=== PATIENT | male | born 1950 | race Caucasian/White ===

== ENCOUNTER 2019-07-30 09:43 | Outpatient (CLI) | payer MEDICARE, OTHER ==
[2019-07-30 10:01] LABS: BASOPHILS # (AUTO) 0.1 10^3/uL (0.0-0.1); BASOPHILS % (AUTO) 0.9 %; EOSINOPHILS # (AUTO) 0.4 10^3/uL (0.0-0.7); EOSINOPHILS % (AUTO) 4.4 %; HGB - HEMOGLOBIN 13.2 g/dL (14.0-18.0); LYMPHOCYTES # (AUTO) 1.5 10^3/uL (1.5-3.5); LYMPHOCYTES % (AUTO) 18.5 %; MEAN CORPUSCULAR HEMOGLOBIN 33.4 pg (27.0-31.0); MEAN CORPUSCULAR HGB CONC 33.7 g/dL (32.0-36.0); MEAN CORPUSCULAR VOLUME 99.2 fL (80.0-94.0); MEAN PLATELET VOLUME 9.1 fL (7.4-11.4); MONOCYTES # (AUTO) 0.8 10^3/uL (0.0-1.0); MONOCYTES % (AUTO) 10.5 %; NEUTROPHILS # (AUTO) 5.1 10^3/uL (1.5-6.6); NEUTROPHILS % (AUTO) 64.8 %; PLT - PLATELET COUNT 276 10^3/uL (130-450); RED BLOOD COUNT 3.95 10^6/uL (4.70-6.10); RED CELL DISTRIBUTION WIDTH 12.4 % (12.0-15.0); WHITE BLOOD COUNT 7.9 x10^3/uL (4.8-10.8)
[2019-07-30 10:14] LABS: ALBUMIN 4.2 g/dL (3.2-5.5); ALBUMIN/GLOBULIN RATIO 1.4 (1.0-2.2); BILIRUBIN,TOTAL 0.3 mg/dL (0.2-1.0); CREATININE 0.7 mg/dL (0.6-1.2); TOTAL PROTEIN 7.2 g/dL (6.7-8.2)
== END 2019-07-30 09:44 | disposition home or self-care (01) ==
LOC: LAB 09:43
PROVIDERS: ATTEND Internal Medicine
DX: R42 Dizziness and giddiness (principal); R53.83 Other fatigue
CPT/HCPCS: 36415; 80053; 84443; 85025

== ENCOUNTER 2019-09-08 12:03 | Outpatient (CLI) | payer MEDICARE, OTHER ==
[2019-09-08 12:43] LABS: ALBUMIN 4.6 g/dL (3.2-5.5); ALBUMIN/GLOBULIN RATIO 1.6 (1.0-2.2); ALKALINE PHOSPHATASE 65 IU/L (42-121); ALT ALANINE AMINOTRANSFERASE 30 IU/L (10-60); AST ASPARTATE AMINOTRANSFERASE 34 IU/L (10-42); BILIRUBIN,TOTAL 0.7 mg/dL (0.2-1.0); BUN - BLOOD UREA NITROGEN 7 mg/dL (6-20); CALCIUM 8.9 mg/dL (8.5-10.3); CARBON DIOXIDE - CO2 26 mmol/L (21-32); CHLORIDE 93 mmol/L (101-111); CHOL/HDL RATIO 2.1 (<5.0); CHOLESTEROL 121 mg/dL; CREATININE 0.8 mg/dL (0.6-1.2); GFR - MDRD 97 (>89); GLUCOSE 109 mg/dL (70-100); HDL CHOLESTEROL 59 mg/dL; LDL CHOLESTEROL,CALCULATED 45 mg/dL; LDL/HDL RATIO 0.8 (<3.6); SODIUM 132 mmol/L (135-145); TOTAL PROTEIN 7.5 g/dL (6.7-8.2); VLDL CHOLESTEROL 17 mg/dL
[2019-09-08 12:44] LABS: HB2 TOTAL 13.1 g/dL; HEMOGLOBIN A1C 0.59 g/dL; HEMOGLOBIN A1C % 6.3 % (4.6-6.2)
[2019-09-08 13:51] LABS: THYROID STIMULATING HORMONE 0.72 uIU/mL (0.34-5.60)
--- NOTE | 2019-09-08 21:52 | XRAY Report ---
Reason: COUGH,SMOKING CESSATION ED,LAB DRAW Procedure Date: 09/08/2019 Accession Number: [id number] / [id number] Procedure: XR - Chest 2 View X-Ray CPT Code: 48464 Final Report FULL RESULT: EXAM: CHEST RADIOGRAPHY EXAM DATE: 09/08/2019 12:35 PM. CLINICAL HISTORY: Cough, smoking cessation education, lab draw. COMPARISON: None. TECHNIQUE: 2 views. FINDINGS: Lungs/Pleura: Large volumes and coarse interstitial markings. No focal pneumonia or overt edema. Biapical pleural thickening. No pneumothorax or effusion. Mediastinum: Within exam limitations, cardiomediastinal contour is normal. Other: None. IMPRESSION: COPD without acute process seen in the chest. RADIA
[2019-09-12 19:03] LABS: METHYLMALONIC ACID 170 nmol/L (87-318)
== END 2019-09-08 12:04 | disposition home or self-care (01) ==
LOC: LAB 12:03 → DI 12:04
PROVIDERS: ATTEND Family Medicine
DX: J44.9 Chronic obstructive pulmonary disease, unspecified (principal); E78.5 Hyperlipidemia, unspecified; F17.200 Nicotine dependence, unspecified, uncomplicated; I10 Essential (primary) hypertension; K21.9 Gastro-esophageal reflux disease without esophagitis; M21.371 Foot drop, right foot; E53.8 Deficiency of other specified B group vitamins; Z87.898 Personal history of other specified conditions
CPT/HCPCS: 36415; 71046; 80053; 80061; 82607; 83036; 83721; 83921; 84425; 84443

== ENCOUNTER 2021-04-18 13:01 | Emergency (ER) | payer MEDICARE, OTHER ==
--- NOTE | 2021-04-18 16:09 | ED Physician Documentation ---
PD HPI UPPER EXT INJURY - Stated complaint Stated Complaint: RT HAND LAC - Chief complaint Chief Complaint: Laceration - History obtained from History obtained from: Patient - History of Present Illness Location: Right, Hand Type of injury: Other (using a planer and took off skin on hi sR thenar eminence) Where injury occurred: Home Timing - onset: Today Timing - duration: Hours Timing - details: Abrupt onset Associated symptoms: No: Weakness, Numbness, Tingling Contributing factors: No: Anticoagulated Recently seen: Not recently seen - Additonal information Additional information: This is a 70-year-old man who was using his planer at home when he ran it across the thenar eminence of his right thumb. He is ambidextrous he does most of his things with his right hand but also uses the left hand for eating and writing. He did not even look at the wound he just held pressure on it on the way here. Last tetanus vaccine was less than 10 years ago. He does not take any blood thinners. He says his fingers were going numb as he was holding a lot of pressure but that is gotten him much improved. He is not diabetic. He is retired. Review of Systems Constitutional: denies: Fever Skin: reports: Other (skin avulsion) Musculoskeletal: reports: Extremity pain Neurologic: denies: Generalized weakness, Focal weakness, Numbness PD PAST MEDICAL HISTORY - Present Medications Home Medications: Ambulatory Orders Medication Instructions Recorded Confirmed cephALEXin [Keflex] 250 mg PO Q6H #12 cap 04/18/21 - Allergies Allergies/Adverse Reactions: Allergies Allergy/AdvReac Type Severity Reaction Status Date / Time No Known Drug Allergies Allergy Verified 04/18/21 13:34 PD ED PE NORMAL - Vitals Vital signs reviewed: Yes - General General: Alert and oriented X 3, No acute distress, Well developed/nourished - HEENT HEENT: Atraumatic - Extremities Extremities: Other (Thenar eminence of R palm with skin avulsion measuring a pprox 1.25x2cm. Muscle tissue and connective tissue evident in base of wound. Sensation intact in fingers and thumb opposition, flexion and adduction intact.) - Neuro Neuro: Alert and oriented X 3, No motor deficit, No sensory deficit, Normal speech - Psych Psych: Normal mood Results - Vitals Vitals: Vital Signs - 24 hr 04/18/21 13:25 Temperature 36.1 C L Heart Rate 88 Respiratory 16 Rate Blood Pressure 139/74 H O2 Saturation 99 Oxygen O2 Source Room air PD MEDICAL DECISION MAKING - ED course ED course: Patient given hydrocodone for his pain. Wound will be cleansed and dressed with antibiotic ointment and Vaseline gauze per nursing. Skin is missing and the wound dimensions are enough that hopefully it will be able to heal by secondary intention without needing a skin graft. This was discussed with the patient. Of asked him to keep our bandage on keep it clean and dry and follow-up with his primary care provider in 2 days for a recheck. Given the exposure of the connective tissues and muscle we elected to put him on 3 days of Keflex 500 mg twice daily.He states understanding.Ibuprofen or Tylenol at home as needed for pain. Departure - Departure Disposition: 01 Home, Self Care Clinical Impression: Skin avulsion Condition: Good Instructions: ED Wound Care Follow-Up: Emiliano Schafer MD [Primary Care Provider] - Prescriptions: cephALEXin [Keflex] 250 mg PO Q6H #12 cap Comments: Leave our bandage on, keep it clean and dry until follow-up with your primary care provider. Take the Keflex for 3 days. Follow-up with your primary care provider in 2 to 3 days for a recheck of the wound.
[2021-04-18] MEDS ORDERED: HYDROcod/ACETAM 5/325 MG TABLET PO STA (16:16)
[2021-04-18] MEDS ORDERED: BACITRACIN ZINC OINT 1 PACKET TOP STA (16:16)
[2021-04-18 16:37] VITALS: BP 158/80
== END 2021-04-18 16:37 | disposition home or self-care (01) ==
LOC: ED 13:01
DX: S61.001A Unspecified open wound of right thumb without damage to nail, initial encounter (principal); W26.2XXA Contact with edge of stiff paper, initial encounter; Y92.009 Unspecified place in unspecified non-institutional (private) residence as the place of occurrence of the external cause
CPT/HCPCS: 99282; 99283; A9270

== ENCOUNTER 2021-07-27 13:41 | Outpatient (CLI) | payer MEDICARE ==
--- NOTE | 2021-07-27 15:59 | XRAY Report ---
PROCEDURE: Shoulder 3 View RT INDICATIONS: FROZEN RIGHT SHOULDER TECHNIQUE: 4 views of the shoulder were acquired. COMPARISON: None. FINDINGS: Bones: No fractures or dislocations. No suspicious bony lesions. Visualized ribs appear intact. Mi ld glenohumeral joint osteoarthritis. Soft tissues: No suspicious soft tissue calcifications. IMPRESSION: Mild glenohumeral joint osteoarthritis. Reviewed by: Shayy Crump MD, PhD on 07/27/2021 3:57 PM PST Approved by: Shayy Crump MD, PhD on 07/27/2021 3:57 PM PST Station ID: [id number]
== END 2021-07-27 13:42 | disposition home or self-care (01) ==
LOC: DI.N 13:41
PROVIDERS: ATTEND Family Medicine
DX: M75.01 Adhesive capsulitis of right shoulder (principal); M19.011 Primary osteoarthritis, right shoulder

== ENCOUNTER 2022-06-05 13:53 | Outpatient (CLI) | payer MEDICARE, OTHER ==
[2022-06-05 17:53] LABS: ABSOLUTE RETICS # AUTO 0.061 10^6/uL (0.020-0.110); BASOPHILS % (AUTO) 0.6 %; EOSINOPHILS # (AUTO) 0.2 10^3/uL (0.0-0.7); EOSINOPHILS % (AUTO) 3.2 %; HCT - HEMATOCRIT 39.4 % (42.0-52.0); HGB - HEMOGLOBIN 13.1 g/dL (14.0-18.0); LYMPHOCYTES % (AUTO) 14.9 %; MEAN CORPUSCULAR HEMOGLOBIN 29.4 pg (27.0-31.0); MEAN CORPUSCULAR HGB CONC 33.2 g/dL (32.0-36.0); MEAN CORPUSCULAR VOLUME 88.3 fL (80.0-94.0); MEAN PLATELET VOLUME 9.1 fL (7.4-11.4); MONOCYTES # (AUTO) 0.6 10^3/uL (0.0-1.0); MONOCYTES % (AUTO) 8.6 %; NEUTROPHILS # (AUTO) 4.7 10^3/uL (1.5-6.6); NEUTROPHILS % (AUTO) 72.5 %; PLT - PLATELET COUNT 260 10^3/uL (130-450); RED BLOOD COUNT 4.46 10^6/uL (4.70-6.10); RED CELL DISTRIBUTION WIDTH 18.1 % (12.0-15.0); RETICULOCYTE COUNT % (AUTO) 1.37 % (0.5-2.3); WHITE BLOOD COUNT 6.5 x10^3/uL (4.8-10.8)
[2022-06-05 18:30] LABS: % IRON SATURATION 13 % (20-50); IRON 56 ug/dL (45-182); TOTAL IRON BINDING CAPACITY 427 ug/dL (250-450); TRANSFERRIN 305 mg/dL (180-329)
[2022-06-05 18:40] LABS: FERRITIN 16.9 ng/mL (23.9-336.2)
[2022-06-05 18:45] LABS: FOLATE 11.33 ng/mL (5.90 - >24.8)
== END 2022-06-05 13:54 | disposition home or self-care (01) ==
LOC: LAB.N 13:53
PROVIDERS: ATTEND Family Medicine
DX: D64.9 Anemia, unspecified (principal)
CPT/HCPCS: 36415; 82607; 82728; 82746; 83540; 84466; 85025; 85045

== ENCOUNTER 2022-09-07 08:51 | Outpatient (CLI) | payer OTHER ==
--- NOTE | 2022-09-07 12:33 | CT Report ---
PROCEDURE: Low Dose Lung Cancer Screen INDICATIONS: History of smoking. TECHNIQUE: Noncontrast low-dose axial images were acquired from the pulmonary apices to the posterior costophren ic angles. Multiplanar MIP reformats were then reconstructed. For radiation dose reduction, the follo wing was used: automated exposure control, adjustment of mA and/or kV according to patient size. COMPARISON: Chest radiographs 09/08/2019. FINDINGS: Image quality: Adequate. Images are denoted as (series #/image #). Lungs and pleura: Mild emphysema. Chronic appearing volume loss/atelectasis right lower lobe. Scatte red areas of bronchiectasis and peripheral airways mucous plugging present. Nodules include: -Left upper lobe: 5 mm groundglass nodule (). No pleural effusion. Mediastinum: No pericardial effusion. Thoracic aorta and central pulmonary arteries are normal in s ize. Esophagus is normal in caliber. Bones and chest wall: Multilevel degenerative change of the visualized spine. No axillary or suprac lavicular adenopathy by size criteria. Abdomen: Small hiatal hernia. IMPRESSION: 1. Lung-RADS Category 2 - benign. Recommendation: Continue annual screening with low-dose noncontrast chest CT in 12 months. 2. Chronic findings as above. Reviewed by: Scott Foley MD on 09/07/2022 12:31 PM [facility] Approved by: Scott Foley MD on 09/07/2022 12:31 PM PST Station ID: [id number]
== END 2022-09-07 08:52 | disposition home or self-care (01) ==
LOC: DI 08:51
PROVIDERS: ATTEND Registered Nurse
DX: Z12.2 Encounter for screening for malignant neoplasm of respiratory organs (principal); Z87.891 Personal history of nicotine dependence

== ENCOUNTER 2023-02-15 12:49 | Emergency (ER) | payer MEDICARE, OTHER ==
[2023-02-15 12:59] VITALS: BP 139/72
--- NOTE | 2023-02-15 13:02 | ED Physician Documentation ---
History of Present Illness - Stated complaint Stated Complaint: GLF - Chief complaint Chief Complaint: Trauma Ch/Bk - Additonal information Additional information: 72-year-old male who has a history of previous cervical fusion presents emerg ency department for evaluation of acute on chronic neck pain as well as acute right anterior chest wall pain. He was getting dressed and fell onto his right side against the bed. Reports striking his head but did not lose consciousness. He is not anticoagulated. He has exquisite pain on the anterior ribs where he fell. Patient states about 12 years ago he had a cervical spine fusion and for the last month he has been having increased pain. He is scheduled to have a Zoom appointment with a spine surgeon next month. Patient is wearing a soft cervical collar that he wears at home. It was not applied by nursing or EMS staff Patient reports that due to the pain in the ribs he is unable to get up but denies pain in the low back hips knees feet or ankles otherwise. Review of Systems Cardiac: reports: Reviewed and negative (Anterior chest wall pain). denies: Chest pain / pressure Respiratory: reports: Reviewed and negative GI: reports: Reviewed and negative Skin: reports: Reviewed and negative Musculoskeletal: reports: Neck pain. denies: Extremity pain, Joint pain PD PAST MEDICAL HISTORY - Present Medications Home Medications: Ambulatory Orders Medication Instructions Recorded Confirmed cephALEXin [Keflex] 250 mg PO Q6H #12 cap 04/18/21 Azithromycin [Zithromax] 0 mg PO DAILY #6 tablet 02/15/23 - Allergies Allergies/Adverse Reactions: Allergies Allergy/AdvReac Type Severity Reaction Status Date / Time No Known Drug Allergies Allergy Verified 02/15/23 12:57 PD ED PE NORMAL - General General: Alert and oriented X 3, No acute distress, Well developed/nourished - HEENT HEENT: Atraumatic, Moist mucous membranes, Pharynx benign, Other (Negative for raccoon eyes, herron sign or hemotympanums) - Neck Neck: Supple, no meningeal sign, Other (Decreased range of motion laterally left side though patient reports that is not new) - Cardiac Cardiac: RRR, No murmur - Respiratory Respiratory: No respiratory distress, Clear bilaterally - Abdomen Abdomen: Normal bowel sounds, Soft - Back Back: No CVA TTP, No spinal TTP, Other (Tenderness palpation of the right lateral and anterior ribs without obvious findings of traumatic ecchymosis or crepitus.) - Derm Derm: Normal color, No rash - Extremities Extremities: Other (Full active and passive range of motion bilateral hips without pain elicited. Normal movement of the knees feet and ankles bilaterally.) - Neuro Neuro: Alert and oriented X 3, budget clerk 2-12 intact Eye Opening: Spontaneous Motor: Obeys Commands Verbal: Oriented GCS Score: 15 Results - Vitals Vitals: Vital Signs - 24 hr 02/15/23 12:54 Temperature 36.8 C Heart Rate 94 Respiratory 16 Rate Blood Pressure 139/72 H O2 Saturation 95 Oxygen O2 Source Room air - Rads (name of study) CT head Relevant Findings:: Final report received (No acute intracranial abnormality) Cervical CT Relevant Findings:: Final report received (No acute displaced fracture or traumatic subluxation.) ct chest Relevant Findings:: Final report received (No displaced fracture or suspicious bony lesion. Infectious or inflammatory bronchiolitis, given tree-in-bud nodules within the left lower lobe, scattered increased impaction and bronchial thickening. Stable scarring within the right lobe) PD Medical Decision Making - ED course Complexity details: reviewed results, re-evaluated patient, considered differential, d/w patient ED course: 72-year-old male presents to the emergency department for evaluation of right- sided anterior chest wall pain after ground-level fall this morning. He was getting dressed on the side of his bed when he kind of slipped down onto the right side. Did not strike her head or lose consciousness. Does have chronic neck pain due to history of previous spinal fusion and prefers to wear a soft cervical collar. On presentation he is alert and well-appearing. Atraumatic. No focal neurodeficits. No deficits noted in the upper extremities. Subsequently a CT of the head and neck were obtained that showed no acute intracranial findings. Given the tenderness of the chest and the concern for possible right-sided rib fracture a chest CT was completed without contrast. No evidence of pneumothorax or rib fractures. There was findings made in the left lower lobe of tree bud nodular appearance concerning for inflammatory or infective bronchiolitis. With this finding I did prescribe the patient a short course of azithromycin but with the concern for pulmonary nodules and active tobaccoism I discussed with the patient that he will need follow-up as an outpatient to have a CT of the chest completed with contrast. He will follow closely with his PCP. In general I recommended Tylenol and ibuprofen for discomfort. The usual emergent return precautions for failure symptoms to improve or acutely worsen was discussed. Departure - Departure Disposition: 01 Home, Self Care Clinical Impression: Ground-level fall, Right-sided chest wall pain, Pulmonary nodules/lesions, multiple Condition: Stable Record reviewed to determine appropriate education?: Yes Instructions: ED Contusion Chest Wall Prescriptions: Azithromycin [Zithromax] 0 mg PO DAILY #6 tablet Comments: Ramy you are seen today in the emergency department as you had a fall onto your right side when getting dressed and out of bed. The CT of your head and neck do not show any signs of bruising or bleeding within the brain or broken bones in the spine. Your hardware is intact. You do have a lot of tenderness on the right side and front side of your chest. The CT of the chest does not show any rib fractures. Radiology does make comment that there are some concerns for infection or inflammatory bronchiolitis given multiple nodules within the left lower lobe. As you are an active tobacco user it is important that you follow the CT result up with your primary doctor as soon as possible. You would benefit from a CT of the chest with contrast to rule out cancer. As there is some minor concern that this could be an infectious finding a prescription for azithromycin is being sent to the [facility] in [place]. In general I recommend you take Tylenol ibuprofen jant-zon-iqyoque for your discomfort. Return to the ER if you develop any fevers have difficulty b reathing or any other emergent concerns.
[2023-02-15] MEDS ORDERED: oxyCODONE 5 MG TABLET PO STA (13:35)
--- NOTE | 2023-02-15 14:10 | CT Report ---
PROCEDURE: CERVICAL SPINE WO INDICATIONS: GLF; increased neck pain; hx of cervical fusion TECHNIQUE: Noncontrast 3 mm thick sections acquired from the skull base to the T4 level. Sagittal and coronal r eformats were then constructed. For radiation dose reduction, the following was used: automated exp osure control, adjustment of mA and/or kV according to patient size. COMPARISON: None. FINDINGS: Image quality: Excellent. Bones: No fractures or dislocations. Visualized superior ribs are intact. Anterior dens erosion. AC DF of C4-5 and C5-6. Grade 1 anterolisthesis of C3 on C4, likely due to facet arthrosis. Soft tissues: Prevertebral soft tissues are normal in thickness. No paravertebral hematomas. No ap ical pneumothoraces. IMPRESSION: No acute, displaced fracture or traumatic subluxation. Reviewed by: Mumtaz López on 02/15/2023 2:09 PM PDT Approved by: Mumtaz López on 02/15/2023 2:09 PM PDT Station ID: [id number]
--- NOTE | 2023-02-15 14:16 | CT Report ---
PROCEDURE: HEAD WO INDICATIONS: GLF; head strike TECHNIQUE: Noncontrast 4.5 mm thick angled axial sections acquired from the foramen magnum to the vertex. For r adiation dose reduction, the following was used: automated exposure control, adjustment of mA and/or kV according to patient size. COMPARISON: None. FINDINGS: Image quality: Excellent. CSF spaces: Basal cisterns are patent. No extra-axial fluid collections. Ventricles are normal in size and shape. Brain: No midline shift. No intracranial masses or hemorrhage. Erazo-white matter interface is norm al. Skull and face: Calvarium and visualized facial bones are intact, without suspicious lesions. Sinuses: Visualized sinuses and mastoids are clear. IMPRESSION: No acute intracranial abnormality. Reviewed by: Massiel Rivera MD on 02/15/2023 2:15 PM PDT Approved by: Massiel Rivera MD on 02/15/2023 2:15 PM PDT Station ID: [id number]
--- NOTE | 2023-02-15 15:28 | CT Report ---
PROCEDURE: CHEST WO INDICATIONS: right anterior rib pain TECHNIQUE: Noncontrast 1mm axial images were acquired from the pulmonary apices to the posterior costophrenic an gles. Axial 5 mm soft tissue kernel reconstructions were performed as well as 8 mm axial MIP and cor onal and sagittal 5 mm reformations. For radiation dose reduction, the following was used: automate d exposure control, adjustment of mA and/or kV according to patient size. COMPARISON: CT 09/07/2022 FINDINGS: Image quality: Excellent. Lungs and pleura: No consolidation. No pleural effusions. No pneumothorax. Stable bronchiectasis and volume loss in the right lower lobe. Stable bronchiectasis with tree-in-bud nodules in the lingula a nd right middle lobe. Bronchial thickening with regions of mucus impaction. Moderate centrilobular em physema. New tree in bud nodules in the left lower lobe. Mediastinum: Heart size is normal. No pericardial effusion. No large vessel abnormality. No mediastin al adenopathy by size criteria. Chest wall and lower neck: Thyroid is unremarkable. No axillary or supraclavicular adenopathy by size . Bones: No aggressive osseous abnormality. No displaced fracture. Upper Abdomen: Unremarkable. IMPRESSION: No displaced fracture or suspicious bony lesion. Infectious or inflammatory bronchiolitis, given tree-in-bud nodules within the left lower lobe, scatt ered increased impaction and bronchial thickening. Stable scarring within the right lower lobe. Reviewed by: Mumtaz López on 02/15/2023 3:26 PM PDT Approved by: Mumtaz López on 02/15/2023 3:26 PM PDT Station ID: [id number]
== END 2023-02-15 16:03 | disposition home or self-care (01) ==
LOC: EDUNIT# → ED 12:49
DX: R07.89 Other chest pain (principal); R91.8 Other nonspecific abnormal finding of lung field; F17.200 Nicotine dependence, unspecified, uncomplicated; Z98.1 Arthrodesis status
CPT/HCPCS: 70450; 71250; 72125; 99284; A9270

== ENCOUNTER 2023-05-10 13:36 | Outpatient (CLI) | payer OTHER ==
[2023-05-10 13:53] LABS: BASOPHILS # (AUTO) 0.1 10^3/uL (0.0-0.1); BASOPHILS % (AUTO) 0.8 %; EOSINOPHILS # (AUTO) 0.1 10^3/uL (0.0-0.7); HCT - HEMATOCRIT 39.2 % (42.0-52.0); HGB - HEMOGLOBIN 13.1 g/dL (14.0-18.0); LYMPHOCYTES # (AUTO) 1.1 10^3/uL (1.5-3.5); MEAN CORPUSCULAR HEMOGLOBIN 31.2 pg (27.0-31.0); MEAN CORPUSCULAR HGB CONC 33.4 g/dL (32.0-36.0); MEAN CORPUSCULAR VOLUME 93.3 fL (80.0-94.0); MEAN PLATELET VOLUME 8.7 fL (7.4-11.4); MONOCYTES # (AUTO) 0.6 10^3/uL (0.0-1.0); NEUTROPHILS # (AUTO) 4.4 10^3/uL (1.5-6.6); NEUTROPHILS % (AUTO) 70.9 %; PLT - PLATELET COUNT 346 10^3/uL (130-450); RED CELL DISTRIBUTION WIDTH 12.4 % (12.0-15.0); WHITE BLOOD COUNT 6.2 x10^3/uL (4.8-10.8)
[2023-05-10 14:10] LABS: ALBUMIN 4.1 g/dL (3.2-5.5); ALBUMIN/GLOBULIN RATIO 1.5 (1.0-2.2); BILIRUBIN,TOTAL 0.4 mg/dL (0.2-1.0); CALCIUM 9.5 mg/dL (8.5-10.3); CREATININE 0.7 mg/dL (0.6-1.3); POTASSIUM 4.2 mmol/L (3.5-4.5); TOTAL PROTEIN 6.8 g/dL (6.4-8.9)
[2023-05-10 14:21] LABS: THYROID STIMULATING HORMONE 0.14 uIU/mL (0.34-5.60)
== END 2023-05-10 13:37 | disposition home or self-care (01) ==
LOC: LAB 13:36
PROVIDERS: ATTEND Family Medicine
DX: E87.1 Hypo-osmolality and hyponatremia (principal); M43.22 Fusion of spine, cervical region; R42 Dizziness and giddiness; M21.371 Foot drop, right foot; I10 Essential (primary) hypertension; K21.9 Gastro-esophageal reflux disease without esophagitis; J44.9 Chronic obstructive pulmonary disease, unspecified
CPT/HCPCS: 36415; 80053; 84439; 84443; 85025

== ENCOUNTER 2023-07-02 14:13 | Outpatient (CLI) | payer MEDICARE, OTHER ==
--- NOTE | 2023-07-02 17:54 | XRAY Report ---
PROCEDURE: Cervical Spine Complete INDICATIONS: FUSION OF CERVICAL SPINE TECHNIQUE: 4 views of the cervical spine acquired. COMPARISON: None. FINDINGS: Patient is status post posterior spinal fusion C2-C5 and anterior spinal fusion C4-C6. Surgical hardw are appears in good position without evidence for hardware complication. No acute osseous abnormality is seen. Oblique views shows areas of neural foraminal stenosis which appear moderate from C3 C4 through C6 C7 . IMPRESSION: 1. Satisfactory postoperative appearance of anterior and posterior spinal fusion C2-C6. 2. Moderate areas of neural foraminal stenosis present C3 C4 through C6 C7. Reviewed by: Fidel Viera MD on 07/02/2023 5:53 PM PST Approved by: Fidel Viera MD on 07/02/2023 5:53 PM PST Station ID: [id number]
== END 2023-07-02 14:14 | disposition home or self-care (01) ==
LOC: DI 14:13
PROVIDERS: ATTEND Internal Medicine
DX: Z98.1 Arthrodesis status (principal); M48.02 Spinal stenosis, cervical region

== ENCOUNTER 2023-08-01 14:25 | Outpatient (CLI) | payer MEDICARE | END 2023-08-01 14:26 | disposition left against medical advice (07) | LOC: EMS 14:25 | DX: R62.7 Adult failure to thrive (principal) ==

== ENCOUNTER 2023-12-21 22:55 | Emergency (ER) | payer MEDICARE ==
--- NOTE | 2023-12-21 23:01 | ED Physician Documentation ---
History of Present Illness - Stated complaint Stated Complaint: BILAT LEG PX - History obtained from History obtained from: Patient - Additonal information Additional information: HPI from patient. Patient complains of bilateral leg pain and spasms. He says he has had similar symptoms for approximately 1 year, but significantly worse over the last 3 days. Patient says the etiology remains unknown despite ongoing testing by primary care provider as well as specialist such as neurology. His symptoms that he is presenting with tonight are not new, just worse than usual. PD PAST MEDICAL HISTORY - Present Medications Home Medications: Ambulatory Orders Medication Instructions Recorded Confirmed cephALEXin [Keflex] 250 mg PO Q6H #12 cap 04/18/21 Azithromycin [Zithromax] 0 mg PO DAILY #6 tablet 02/15/23 Cyclobenzaprine [Flexeril] 10 mg PO TID PRN #20 tablet 12/21/23 Oxycodone HCl 10 mg PO TID PRN #14 tablet 12/21/23 - Allergies Allergies/Adverse Reactions: Allergies Allergy/AdvReac Type Severity Reaction Status Date / Time No Known Drug Allergies Allergy Verified 12/21/23 22:59 PD ED PE NORMAL - Vitals Vital signs reviewed: Yes - General General: Alert and oriented X 3, Well developed/nourished, Other (cachectic) - Neck Neck: Supple, no meningeal sign - Extremities Extremities: No tenderness to palpate, Normal ROM s pain, No calf tenderness / cord, Other (significant BLE muscle wasting. FROM bilateral hips, knees, ankles) - Neuro Neuro: Alert and oriented X 3 Eye Opening: Spontaneous Motor: Obeys Commands Verbal: Oriented GCS Score: 15 Results - Vitals Vitals: Vital Signs - 24 hr 12/21/23 12/21/23 22:59 23:10 Temperature 36.8 C Heart Rate 130 H 113 H Respiratory 16 Rate Blood Pressure 136/77 H O2 Saturation 99 Oxygen O2 Source Room air PD Medical Decision Making - ED course Complexity details: considered differential, d/w patient ED course: Patient presents with chronic bilateral leg pain and cramping, worse the past few days. I asked him what medications he takes for the symptoms and he says he takes baclofen. I asked him if he takes any other pain medications and he initially says he does not. I explained to him that, on the records I have available on [facility], it appears that he gets monthly prescriptions for oxycodone 20 mg 3 times daily. He eventually recalls that he does get this medication as a regular prescription, although he continues to seem under confident/uncertain. If the information I am seeing in [facility] regarding prescription fills is correct, the patient should actually have a few more days of oxycodone remaining; however, the patient says he does not have any such medication at home at this time. According to the prescription fills I see in [facility], the prescriptions he has been receiving have all been from the same PCP. I am thus giving patient benefit of doubt and providing a short course of oxycodone. Additionally, I am prescribing a short course of Flexeril. He is given 1mg IM dilaudid in ED, 10mg PO flexeril, and take-home pack of percocet. Departure - Departure Disposition: 01 Home, Self Care Clinical Impression: Leg pain, bilateral Condition: Good Instructions: ED Muscle Pain Leg Cramps Follow-Up: Emiliano Schafer MD [Primary Care Provider] - Prescriptions: Cyclobenzaprine [Flexeril] 10 mg PO TID PRN #20 tablet PRN Reason: Spasms Oxycodone HCl 10 mg PO TID PRN #14 tablet PRN Reason: Pain >8 Comments: I have electronically submitted prescriptions for cyclobenzaprine (muscle relaxant) and oxycodone (Narcotic/opiate pain medication) to the [facility] pharmacy in [place]. I am prescribing a short course of narcotic pain medication for you. These are potentially dangerous and addictive medications that should be used carefully. These medications may constipate you. Take an fcdn-foc-ocuwyev stool softener (docusate) twice daily with plenty of water while taking these medications. If you go 24 hours without a bowel movement, take fltu-dbh-zecdygg miralax, per package instructions. Do not drink or drive while taking these medications. If you received narcotic or sedating medications while in the emergency department, do not drive for 24 hours. Store this medication in a safe, secure place and out of reach of children. It is a violation of federal law to give or sell this medication to another person or to use in a manner other than prescribed. The ED will not refill narcotic prescriptions, including prescriptions lost or stolen. To dispose of unwanted medications: 1. [facility] at [address] in [place] has a medication drop box. They accept prescription medications (in pill form) Saturday through Saturday 9:00 a.m. to 5:00 p.m. 2. The [facility] accepts prescription medications (in pill form only) for disposal year round. Call for more information. 3. Contact the [facility] for the next [facility] sponsored prescription drug collection event. , [phone], or [phone]; Forms: PCP List Discharge Date/Time: 12/22/23 00:07
[2023-12-21 23:16] VITALS: BP 136/77; O2SAT 99
[2023-12-21] MEDS: HYDROmorphone 1 MG/ML CARPUJECT IM STA (23:40)
[2023-12-21] MEDS: CYCLOBENZAPRINE 10 MG TABLET PO STA (23:40)
[2023-12-21] MEDS: oxyCODONE/ACET 5/325 Prepack 4 PO STA (23:40)
== END 2023-12-22 00:07 | disposition home or self-care (01) ==
LOC: ED 22:55
DX: M79.605 Pain in left leg (principal); M79.604 Pain in right leg; G89.29 Other chronic pain
CPT/HCPCS: 96372; 99283; A9270; J1170

== ENCOUNTER 2024-01-28 08:37 | Outpatient (CLI) | payer OTHER | END 2024-01-28 08:38 | disposition critical access hospital (66) | LOC: EMS 08:37 | DX: R53.1 Weakness (principal); R06.02 Shortness of breath; R53.81 Other malaise; R09.89 Other specified symptoms and signs involving the circulatory and respiratory systems | CPT/HCPCS: A0425; A0429 ==

== ENCOUNTER 2024-01-28 08:52 | Emergency (ER) | payer MEDICARE, OTHER ==
--- NOTE | 2024-01-28 09:14 | ED Physician Documentation ---
PD HPI ALTERED MENTAL STATUS - Stated complaint Stated Complaint: WEAKNESS - Chief complaint Chief Complaint: Resp - History obtained from History obtained from: Patient, Family () - History of Present Illness Timing - onset: How many days ago (3) Timing - duration: Days (3) Timing - details: Gradual onset, Still present Quality / character: Other (sleeping more than usual and not eating x3 days.) Associated symptoms: General weakness Contributing factors: Other (has hemiplegia with cervical mylopathy) Basline status: Alert and oriented X 3, Wheelchair Similar symptoms before: Has not had sx before Recently seen: Clinic (usually seen about every 2 weeks at the [facility]) - Additional information Additional information: Carlos Mello is a 73-year-old male with a history of cervical myelopathy and he is wheelchair-bound with unusable lower extremities.. He has a history of COPD and most recently he has developed increasing shortness of breath and his inhalers are not as effective. This morning his was getting ready to take him to the doctor for a pre-arranged visit to have is new wheel chair fitted. She was unable to wake him and when medics arrived they found him with hypoxia, applied oxygen and he improved. Review of Systems Constitutional: denies: Fever Eyes: denies: Decreased vision Ears: denies: Ear pain Nose: denies: Congestion Throat: denies: Sore throat Cardiac: denies: Chest pain / pressure, Palpitations Respiratory: reports: Dyspnea, Wheezing GI: denies: Abdominal Pain, Vomiting, Diarrhea : denies: Dysuria, Frequency PD PAST MEDICAL HISTORY - Past Medical History Past Medical History: Yes Cardiovascular: Hypertension Respiratory: COPD Neuro: Other GI: GERD : None HEENT: None Psych: None Musculoskeletal: Chronic back pain Derm: None Other Past Medical History: Spinal stenosis - Past Surgical History Past Surgical History: Yes Ortho: Spine surgery - Present Medications Home Medications: Ambulatory Orders Medication Instructions Recorded Confirmed Cyclobenzaprine [Flexeril] 10 mg PO TID PRN #20 tablet 12/21/23 01/28/24 Oxycodone HCl 10 mg PO TID PRN #14 tablet 12/21/23 01/28/24 Aspirin [[place] Aspirin] 1 tab PO DAILY 01/28/24 01/28/24 Atorvastatin [Lipitor] 1 tab PO DAILY 06/25/24 06/25/24 Azithromycin [Zithromax] 250 mg PO DAILY #6 tablet 01/28/24 Omeprazole 1 cap PO DAILY 01/28/24 01/28/24 Pregabalin [Lyrica] 1 cap PO DAILY 01/28/24 01/28/24 guaiFENesin [Chest Congestion 1 tab PO DAILY 01/28/24 01/28/24 Relief] predniSONE [Deltasone] 10 mg PO ONCE #26 tablet 01/28/24 traZODone [Desyrel] 1 tab PO DAILY 01/28/24 01/28/24 - Allergies Allergies/Adverse Reactions: Allergies Allergy/AdvReac Type Severity Reaction Status Date / Time No Known Drug Allergies Allergy Verified 01/28/24 09:12 - Social History Does the pt smoke?: Yes Smoking Status: Current every day smoker Does the pt drink ETOH?: No Does the pt have substance abuse?: No - Immunizations Immunizations are current?: Yes - POLST Patient has POLST: No PD ED PE NORMAL - Vitals Vital signs reviewed: Yes - General General: Alert and oriented X 3, No acute distress, Other (Thin elderly male ) - HEENT HEENT: Atraumatic, PERRL, EOMI, Other (dry mucous membranes ) - Neck Neck: Supple, no meningeal sign, No bony TTP - Cardiac Cardiac: RRR, No murmur - Respiratory Respiratory: No respiratory distress, Other (scattered wheezes bilaterlly with focal wheeze in right base. no rhonchi. 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 ) Eye Opening: Spontaneous Motor: Obeys Commands Verbal: Oriented GCS Score: 15 - Psych Psych: Normal mood, Normal affect Results - Vitals Vitals: Vital Signs - 24 hr 01/28/24 01/28/24 01/28/24 09:04 09:11 10:40 Temperature 36.2 C L Heart Rate 75 78 70 Respiratory 18 16 16 Rate Blood Pressure 124/71 85/52 L O2 Saturation 100 85 L If not protocol : Oxygen Flow, liters/minute 01/28/24 01/28/24 01/28/24 10:50 11:18 11:23 Temperature Heart Rate 68 70 Respiratory 16 16 Rate Blood Pressure 101/60 O2 Saturation 97 100 If not protocol 2 2 : Oxygen Flow, liters/minute 01/28/24 01/28/24 01/28/24 12:00 12:27 12:39 Temperature Heart Rate 99 99 99 Respiratory 18 17 17 Rate Blood Pressure 122/63 122/63 O2 Saturation 99 99 If not protocol : Oxygen Flow, liters/minute Oxygen O2 Source Room air - Labs Labs: Laboratory Tests 01/28/24 01/28/24 01/28/24 09:35 09:35 09:35 WBC 8.0 RBC 3.58 L Hgb 10.4 L Hct 32.4 L MCV 90.5 MCH 29.1 MCHC 32.1 RDW 13.1 Plt Count 307 MPV 9.3 Neut # (Auto) 4.8 Lymph # (Auto) 1.9 [place] # (Auto) 0.9 Eos # (Auto) 0.3 Baso # (Auto) 0.1 Absolute Nucleated RBC 0.00 Nucleated RBC % 0.0 Sodium 133 L Potassium 4.1 Chloride 99 L Carbon Dioxide 29 Anion Gap 5.0 L BUN 18 Creatinine 0.7 Estimated GFR (MDRD) 111 Glucose 90 Lactic Acid 1.0 Calcium 9.7 Total Bilirubin 0.5 AST 12 ALT 8 L Alkaline Phosphatase 62 Total Protein 6.7 Albumin 4.0 Globulin 2.7 Albumin/Globulin Ratio 1.5 Lipase 29 - Rads (name of study) CT head Relevant Findings:: Prelim report reviewed (Impression: No acute intracranial pathology.), EMP independent interpretation of test cxr Relevant Findings:: Prelim report reviewed (Impression: No acute cardiopulmonary process.), EMP independent interpretation of test (There does appear to be significant COPD.), See rad report Procedures - IVC sono (time) 0908 Bedside IVC sono: IVC measures (cm) (1.88), Euvolemia PD Medical Decision Making - ED course Complexity details: reviewed old records, reviewed results, re-evaluated patient, considered differential, d/w patient, d/w family ED course: Wheezing with hypoxia requiring oxygen. Altered mental status improved with oxygen. No signs of dehydration. Wheezes on exam. Initially treated for exacerbation of COPD. The patient improves with the use of a DuoNeb and improves further with a second albuterol treatment he is now saturating at 100% on room air. He does not have much activity at home he does not stand or walk he will pivot transfer to his wheelchair. He is treated here with 10 mg of dexamethasone and [address] him on a course of prednisone continue bronchodilators and add azithromycin. Departure - Departure Disposition: Home, Self Care Clinical Impression: COPD with exacerbation Condition: Stable Instructions: ED COPD Flare Follow-Up: Emiliano Schafer MD [Primary Care Provider] - Prescriptions: predniSONE [Deltasone] 10 mg PO ONCE #26 tablet Azithromycin [Zithromax] 250 mg PO DAILY #6 tablet Comments: Carlos, today it looks like you have an exacerbation of your COPD and we are placing you on a course of prednisone and antibiotic. Continue to use your inhalers as previously and follow-up here with us if you are not having improvement. Medications have been E [facility] to [facility] in [place]. Forms: PCP List Discharge Date/Time: 01/28/24 12:39
[2024-01-28] MEDS: DEXAMETHASONE 10 MG/ML VIAL IVP STA (09:30)
[2024-01-28] MEDS: IPRATROPIUM/ALBUTEROL 3 ML NEB INH STA (09:31)
[2024-01-28 09:42] LABS: BASOPHILS # (AUTO) 0.1 10^3/uL (0.0-0.1); BASOPHILS % (AUTO) 0.9 %; EOSINOPHILS # (AUTO) 0.3 10^3/uL (0.0-0.7); EOSINOPHILS % (AUTO) 3.3 %; HCT - HEMATOCRIT 32.4 % (42.0-52.0); HGB - HEMOGLOBIN 10.4 g/dL (14.0-18.0); LYMPHOCYTES # (AUTO) 1.9 10^3/uL (1.5-3.5); MEAN CORPUSCULAR HEMOGLOBIN 29.1 pg (27.0-31.0); MEAN CORPUSCULAR HGB CONC 32.1 g/dL (32.0-36.0); MEAN CORPUSCULAR VOLUME 90.5 fL (80.0-94.0); MEAN PLATELET VOLUME 9.3 fL (7.4-11.4); MONOCYTES # (AUTO) 0.9 10^3/uL (0.0-1.0); MONOCYTES % (AUTO) 11.3 %; NEUTROPHILS # (AUTO) 4.8 10^3/uL (1.5-6.6); NEUTROPHILS % (AUTO) 60.2 %; PLT - PLATELET COUNT 307 10^3/uL (130-450); RED BLOOD COUNT 3.58 10^6/uL (4.70-6.10); RED CELL DISTRIBUTION WIDTH 13.1 % (12.0-15.0)
[2024-01-28 10:05] LABS: ALBUMIN/GLOBULIN RATIO 1.5 (1.0-2.2); BILIRUBIN,TOTAL 0.5 mg/dL (0.2-1.0); CALCIUM 9.7 mg/dL (8.5-10.3); CREATININE 0.7 mg/dL (0.6-1.3); POTASSIUM 4.1 mmol/L (3.5-4.5); TOTAL PROTEIN 6.7 g/dL (6.4-8.9)
--- NOTE | 2024-01-28 10:09 | XRAY Report ---
PROCEDURE: Chest 1V INDICATIONS: chest pain TECHNIQUE: One view of the chest was acquired. COMPARISON: None. FINDINGS: Surgical changes and devices: Partially visualized cervical spine fixation hardware. Lungs and pleura: No pleural effusions or pneumothorax. Lungs are clear. Lungs hyperinflated ingest ing COPD Mediastinum: Mediastinal contours appear normal. Heart size is normal. Bones and chest wall: No suspicious bony lesions. Overlying soft tissues appear unremarkable. IMPRESSION: No acute cardiopulmonary process. Reviewed by: Shayy Crump MD, PhD on 01/28/2024 10:08 AM PDT Approved by: Shayy Crump MD, PhD on 01/28/2024 10:08 AM PDT Station ID: [id number]
--- NOTE | 2024-01-28 10:11 | CT Report ---
PROCEDURE: Head WO INDICATIONS: altered LOC TECHNIQUE: Noncontrast 4.5 mm thick angled axial sections acquired from the foramen magnum to the vertex. For r adiation dose reduction, the following was used: automated exposure control, adjustment of mA and/or kV according to patient size. COMPARISON: None. FINDINGS: Image quality: Excellent. CSF spaces: Basal cisterns are patent. No extra-axial fluid collections. Ventricles are normal in size and shape. Brain: No midline shift. No intracranial masses or hemorrhage. Erazo-white matter interface is norm al. Mild, diffuse cerebral volume os. Mild periventricular and subcortical white matter chronic micro vascular ischemic change. Atherosclerotic calcification in the internal carotid arteries. Skull and face: Calvarium and visualized facial bones are intact, without suspicious lesions. Sinuses: Visualized sinuses and mastoids are clear. IMPRESSION: No acute intracranial pathology. Reviewed by: Shayy Crump MD, PhD on 01/28/2024 10:09 AM PDT Approved by: Shayy Crump MD, PhD on 01/28/2024 10:09 AM PDT Station ID: [id number]
[2024-01-28] MEDS: SODIUM CHLORIDE 0.9% 500 ML IV STA (11:07)
[2024-01-28] MEDS: ALBUTEROL NEB 2.5 MG/3 ML INH STA ×2 (11:10→12:00)
[2024-01-28 12:32] VITALS: BP 122/63; O2SAT 99
== END 2024-01-28 12:39 | disposition home or self-care (01) ==
LOC: EDUNIT# → ED 08:52
DX: J44.1 Chronic obstructive pulmonary disease with (acute) exacerbation (principal)
CPT/HCPCS: 36415; 80053; 83605; 83690; 85025; 87040; 94640; 94664; 96374; 99284

== ENCOUNTER 2024-02-15 16:23 | Outpatient (CLI) | payer OTHER | END 2024-02-15 23:59 | disposition critical access hospital (66) | LOC: EMS 16:23 | DX: R53.1 Weakness (principal); R53.83 Other fatigue; I95.9 Hypotension, unspecified; R00.0 Tachycardia, unspecified | CPT/HCPCS: A0425; A0429 ==

== ENCOUNTER 2024-02-15 16:35 | Emergency (ER) | payer OTHER ==
[2024-02-15] MEDS: SODIUM CHLORIDE 0.9% 1,000 ML IV STA (16:44)
--- NOTE | 2024-02-15 16:48 | ED Physician Documentation ---
History of Present Illness - Stated complaint Stated Complaint: WEAKNESS - History obtained from History obtained from: Patient, EMS - Additonal information Additional information: 73-year-old gentleman with history of cervical myelopathy and more recent diagnosis of presumptive ALS. He is wheelchair-bound and also has COPD. He presents today with generalized weakness and low blood pressure at home. He is a vague historian, for example when queried how long he has had low blood pressure he simply responds "for a while." He denies any physical pain. Says that his breathing is "rough." He was seen by my partner a few weeks ago for COPD exacerbation and started on prednisone, azithromycin. He is having his ALS worked up at the [facility]. Further history from the was obtained shortly after my initial evaluation as she drove following the ambulance. She says he has been confused and lethargic for several days with low blood pressures at home. He ran out of his oxycodone early, and took last dose yesterday. She confirms that he is being worked up for ALS at the [facility] with EMG testing but no definitive diagnosis has been given yet. He has been wheelchair-bound for about a year. PD PAST MEDICAL HISTORY - Past Medical History Cardiovascular: Hypertension Respiratory: COPD Neuro: Other GI: GERD : None HEENT: None Psych: None Musculoskeletal: Chronic back pain Derm: None - Past Surgical History Past Surgical History: Yes Ortho: Spine surgery - Present Medications Home Medications: Ambulatory Orders Medication Instructions Recorded Confirmed Oxycodone HCl 10 mg PO TID PRN #14 tablet 12/21/23 02/15/24 Aspirin [[place] Aspirin] 1 tab PO DAILY 01/28/24 02/15/24 Atorvastatin [Lipitor] 1 tab PO DAILY 01/28/24 02/15/24 Omeprazole 1 cap PO DAILY 01/28/24 02/15/24 Pregabalin [Lyrica] 1 cap PO DAILY 01/28/24 02/15/24 guaiFENesin [Chest Congestion 1 tab PO DAILY 01/28/24 02/15/24 Relief] traZODone [Desyrel] 1 tab PO DAILY 01/28/24 02/15/24 Lisinopril [Zestril] 1 tab PO DAILY 02/15/24 02/15/24 - Allergies Allergies/Adverse Reactions: Allergies Allergy/AdvReac Type Severity Reaction Status Date / Time No Known Drug Allergies Allergy Verified 02/15/24 16:50 - Social History Does the pt smoke?: Yes Smoking Status: Current every day smoker Does the pt drink ETOH?: No Does the pt have substance abuse?: No - Immunizations Immunizations are current?: Yes - POLST Patient has POLST: No PD ED PE NORMAL - Vitals Vital signs reviewed: Yes - General General: No acute distress, Other (He is quite thin to the point of being cachectic. Slightly lethargic but generally alert. He knows where he is and can give a reasonable not not great history. When queried on the date he says it is January and cannot come up with the year. 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 Eye Opening: Spontaneous Motor: Obeys Commands Verbal: Confused GCS Score: 14 Results - Vitals Vitals: Vital Signs - 24 hr 02/15/24 02/15/24 02/15/24 16:41 17:19 17:22 Temperature 36.4 C L Heart Rate 93 72 88 Respiratory 16 16 18 Rate Blood Pressure 81/49 L 76/44 L O2 Saturation 97 95 02/15/24 02/15/24 02/15/24 17:30 18:00 18:30 Temperature Heart Rate 70 74 84 Respiratory 18 18 17 Rate Blood Pressure 66/44 L 68/46 L 69/47 L O2 Saturation 98 98 98 02/15/24 02/15/24 19:00 19:12 Temperature Heart Rate 83 88 Respiratory 17 20 Rate Blood Pressure 79/44 L 90/51 L O2 Saturation 97 100 Oxygen O2 Source Room air - EKG (time done) 1645 EKG releavant findings:: EKG personally interpreted by author of this note. Relevant findings are: Rate: Rate (enter#) (94) Rhythm: NSR [place]: Normal Intervals: Normal [place] QRS: Normal Ischemia: Normal ST segments - Labs Labs: Laboratory Tests 02/15/24 02/15/24 02/15/24 16:45 16:45 16:45 WBC 7.8 RBC 3.32 L Hgb 9.6 L Hct 29.7 L MCV 89.5 MCH 28.9 MCHC 32.3 RDW 13.8 Plt Count 361 MPV 8.9 Neut # (Auto) 5.7 Lymph # (Auto) 1.2 L [place] # (Auto) 0.8 Eos # (Auto) 0.1 Baso # (Auto) 0.0 Absolute Nucleated RBC 0.00 Nucleated RBC % 0.0 VBG pH VBG pCO2 VBG pO2 VBG HCO3 VBG Total CO2 VBG O2 Saturation VBG Base Excess Sodium 129 L Potassium 3.9 Chloride 97 L Carbon Dioxide 24 Anion Gap 8.0 BUN 19 Creatinine 1.2 Estimated GFR (MDRD) 60 L Glucose 129 H Lactic Acid 2.0 Calcium 9.0 Magnesium 1.9 Total Bilirubin 0.3 AST 8 L ALT 7 L Alkaline Phosphatase 68 Total Protein 6.2 L Albumin 3.7 Globulin 2.5 Albumin/Globulin Ratio 1.5 Nasal Adenovirus (PCR) Nasal B. parapertussis DNA (PCR) Nasal Coronavir 229E PCR Nasal Coronavir HKU1 PCR Nasal Coronavir NL63 PCR Nasal Coronavir OC43 PCR Nasal Enterovir/Rhinovir PCR Nasal Influenza B PCR Nasal Influenza A PCR Nasal Parainfluen 1 PCR Nasal Parainfluen 2 PCR Nasal Parainfluen 3 PCR Nasal Parainfluen 4 PCR Nasal RSV (PCR) Nasal B.pertussis DNA PCR Nasal C.pneumoniae (PCR) Ariel Human Metapneumo PCR Nasal M.pneumoniae (PCR) Nasal SARS-CoV-2 (PCR) Ethyl Alcohol < 10.0 02/15/24 02/15/24 16:45 17:25 WBC RBC Hgb Hct MCV MCH MCHC RDW Plt Count MPV Neut # (Auto) Lymph # (Auto) [place] # (Auto) Eos # (Auto) Baso # (Auto) Absolute Nucleated RBC Nucleated RBC % VBG pH 7.427 H VBG pCO2 30.9 L VBG pO2 77.4 H VBG HCO3 19.9 L VBG Total CO2 20.9 L VBG O2 Saturation 95.6 H VBG Base Excess -3.7 L Sodium Potassium Chloride Carbon Dioxide Anion Gap BUN Creatinine Estimated GFR (MDRD) Glucose Lactic Acid Calcium Magnesium Total Bilirubin AST ALT Alkaline Phosphatase Total Protein Albumin Globulin Albumin/Globulin Ratio Nasal Adenovirus (PCR) NOT DETECTED Nasal B. parapertussis DNA (PCR) NOT DETECTED Nasal Coronavir 229E PCR NOT DETECTED Nasal Coronavir HKU1 PCR NOT DETECTED Nasal Coronavir NL63 PCR NOT DETECTED Nasal Coronavir OC43 PCR NOT DETECTED Nasal Enterovir/Rhinovir PCR NOT DETECTED Nasal Influenza B PCR NOT DETECTED Nasal Influenza A PCR NOT DETECTED Nasal Parainfluen 1 PCR NOT DETECTED Nasal Parainfluen 2 PCR NOT DETECTED Nasal Parainfluen 3 PCR NOT DETECTED Nasal Parainfluen 4 PCR NOT DETECTED Nasal RSV (PCR) NOT DETECTED Nasal B.pertussis DNA PCR NOT DETECTED Nasal C.pneumoniae (PCR) NOT DETECTED Ariel Human Metapneumo PCR NOT DETECTED Nasal M.pneumoniae (PCR) NOT DETECTED Nasal SARS-CoV-2 (PCR) NOT DETECTED Ethyl Alcohol - Rads (name of study) Single view chest x-ray was negative as was CT imaging of the brain. Relevant Findings:: Final report received, EMP independent interpretation of test PD Medical Decision Making - ED course ED course: CBC notable for mild worsening of chronic anemia. No leukocytosis. Venous blood gas showing mild respiratory alkalosis. CMP showing slight worsening of hyponatremia with no lactic acidosis. Blood alcohol testing negative/normal. 73-year-old gentleman presents by ambulance for progressive weakness, hypotension and lethargy. He is also somewhat confused. Much of the history is from the who is at the bedside. He has a diagnosis of tetraplegia and progressive neuromuscular weakness from the [facility] with possible diagnosis of ALS. He was administered a liter of saline after which his blood pressure trended down to 60/40 or so. On reexamination 627 he was sleeping but easily arousable. Decision making with the , he probably needs to be at a facility with inpatient neurology and he is [facility]27 [facility]. I spoke with the [facility] center at [facility] and they are on subsequently the [facility] was unable [facility] due to bed status and I spoke with the transfer center at the [facility] who could not entertain the case at this time due to critical census. I asked the health community health advocate to call around for facilities capable of high-level neurology workup as an inpatient. At this point his pressure is trending back up now at a more reassuring 90/51. Departure - Departure Disposition: 02 Transfer Acute Care Hosp Clinical Impression: Muscle weakness, Hypotension, Delirium Condition: Serious Record reviewed to determine appropriate education?: Yes
[2024-02-15 17:00] LABS: BASOPHILS % (AUTO) 0.4 %; EOSINOPHILS # (AUTO) 0.1 10^3/uL (0.0-0.7); EOSINOPHILS % (AUTO) 0.9 %; HCT - HEMATOCRIT 29.7 % (42.0-52.0); HGB - HEMOGLOBIN 9.6 g/dL (14.0-18.0); LYMPHOCYTES # (AUTO) 1.2 10^3/uL (1.5-3.5); LYMPHOCYTES % (AUTO) 15.1 %; MEAN CORPUSCULAR HEMOGLOBIN 28.9 pg (27.0-31.0); MEAN CORPUSCULAR HGB CONC 32.3 g/dL (32.0-36.0); MEAN CORPUSCULAR VOLUME 89.5 fL (80.0-94.0); MEAN PLATELET VOLUME 8.9 fL (7.4-11.4); MONOCYTES # (AUTO) 0.8 10^3/uL (0.0-1.0); MONOCYTES % (AUTO) 9.9 %; NEUTROPHILS # (AUTO) 5.7 10^3/uL (1.5-6.6); NEUTROPHILS % (AUTO) 73.3 %; PLT - PLATELET COUNT 361 10^3/uL (130-450); RED BLOOD COUNT 3.32 10^6/uL (4.70-6.10); RED CELL DISTRIBUTION WIDTH 13.8 % (12.0-15.0); WHITE BLOOD COUNT 7.8 x10^3/uL (4.8-10.8)
[2024-02-15 17:16] LABS: ALBUMIN 3.7 g/dL (3.2-5.5); ALBUMIN/GLOBULIN RATIO 1.5 (1.0-2.2); ALKALINE PHOSPHATASE 68 IU/L (42-121); ALT ALANINE AMINOTRANSFERASE 7 IU/L (10-60); AST ASPARTATE AMINOTRANSFERASE 8 IU/L (10-42); BILIRUBIN,TOTAL 0.3 mg/dL (0.2-1.0); BUN - BLOOD UREA NITROGEN 19 mg/dL (6-20); CARBON DIOXIDE - CO2 24 mmol/L (21-32); CHLORIDE 97 mmol/L (101-111); CREATININE 1.2 mg/dL (0.6-1.3); ETOH - ETHANOL < 10.0 mg/dL; GFR - MDRD 60 (>89); GLUCOSE 129 mg/dL (74-104); MAGNESIUM 1.9 mg/dL (1.7-2.3); POTASSIUM 3.9 mmol/L (3.5-4.5); SODIUM 129 mmol/L (135-145); TOTAL PROTEIN 6.2 g/dL (6.4-8.9)
[2024-02-15] MEDS: IPRATROPIUM/ALBUTEROL 3 ML NEB INH STA (17:22)
--- NOTE | 2024-02-15 17:29 | CT Report ---
PROCEDURE: Head WO INDICATIONS: confusion TECHNIQUE: Noncontrast 4.5 mm thick angled axial sections acquired from the foramen magnum to the vertex. For r adiation dose reduction, the following was used: automated exposure control, adjustment of mA and/or kV according to patient size. COMPARISON: 01/28/2024 and 02/15/2023. FINDINGS: Image quality: Excellent. CSF spaces: Basal cisterns are patent. No extra-axial fluid collections. Ventricles are normal in size and shape. Brain: No midline shift. No intracranial masses or hemorrhage. Erazo-white matter interface is norm al. Skull and face: Calvarium and visualized facial bones are intact, without suspicious lesions. Sinuses: Visualized sinuses and mastoids are clear. IMPRESSION: No acute intracranial pathology. No significant changes from prior studies. Reviewed by: Sanjay Younger MD on 02/15/2024 5:28 PM PDT Approved by: Sanjay Younger MD on 02/15/2024 5:28 PM PDT Station ID: [id number]
--- NOTE | 2024-02-15 17:30 | XRAY Report ---
PROCEDURE: Chest 1V INDICATIONS: dyspnea TECHNIQUE: One view of the chest was acquired. COMPARISON: 01/28/[address] of chest dated 02/15/2023. FINDINGS: Surgical changes and devices: None. Lungs and pleura: No pleural effusions or pneumothorax. Lungs are clear. Mediastinum: Mediastinal contours appear normal. Heart size is normal. Bones and chest wall: No suspicious bony lesions. Overlying soft tissues appear unremarkable. IMPRESSION: No acute cardiopulmonary process. Reviewed by: Sanjay Younger MD on 02/15/2024 5:28 PM PDT Approved by: Sanjay Younger MD on 02/15/2024 5:28 PM PDT Station ID: [id number]
[2024-02-15 17:41] LABS: VBG HCO3 19.9 mmol/L (23-28); VBG PCO2 30.9 mmHg (41-51); VBG PH 7.427 (7.31-7.41); VBG PO2 77.4 mmHg (25-47); VBG TOTAL CO2 20.9 mmol/L (24-29)
[2024-02-15 17:42] LABS: VBG BASE EXCESS -3.7 mmol/L (-2 - +2); VBG OXYGEN SATURATION 95.6 % (60-80)
[2024-02-15 18:02] LABS: CORONAVIRUS 229E-RESP PCR NOT DETECTED; CORONAVIRUS HKU1-RESP PCR NOT DETECTED; CORONAVIRUS NL63-RESP PCR NOT DETECTED; CORONAVIRUS OC43-RESP PCR NOT DETECTED; HUMAN METAPNEUMOVIRUS NOT DETECTED; INFLUENZA A- RESP PCR PANEL NOT DETECTED; RHINOVIRUS/ENTEROVIRUS NOT DETECTED; SARS-CoV-2 -RESP PCR PANEL NOT DETECTED
[2024-02-15 18:03] LABS: B. PARAPERTUSSIS- RESP PCR PAN NOT DETECTED; B. PERTUSSIS- RESP PCR PANEL NOT DETECTED; C. PNEUMONIAE- RESP PCR PANEL NOT DETECTED; INFLUENZA B - RESP PCR PANEL NOT DETECTED; M. PNEUMONIAE- RESP PCR PANEL NOT DETECTED; PARAINFLUENZA VIRUS 1 NOT DETECTED; PARAINFLUENZA VIRUS 2 NOT DETECTED; PARAINFLUENZA VIRUS 3 NOT DETECTED; PARAINFLUENZA VIRUS 4 NOT DETECTED; RSV- RESP PCR PANEL NOT DETECTED
[2024-02-15] MEDS: LACTATED RINGERS 1,000 ML IV STA ×2 (18:30→20:50)
[2024-02-15 20:07] LABS: AMPHETAMINE SCREEN,URINE NEGATIVE (NEGATIVE); BARBITURATE SCREEN,UR NEGATIVE (NEGATIVE); BENZODIAZEPINES SCREEN, URINE NEGATIVE (NEGATIVE); BUPRENORPHINE SCREEN, URINE NEGATIVE (NEGATIVE); COCAINE SCREEN URINE NEGATIVE (NEGATIVE); METHADONE SCREEN, URINE NEGATIVE (NEGATIVE); METHAMPHETAMINES SCREEN, URINE NEGATIVE (NEGATIVE); OPIATE SCREEN, URINE NEGATIVE (NEGATIVE); OXYCODONE SCREEN, URINE POSITIVE (NEGATIVE); THC CANNABINOID SCREEN, URINE POSITIVE (NEGATIVE); TRICYCLIC ANTIDEPRESSANT,URINE NEGATIVE (NEGATIVE)
[2024-02-15] MEDS ORDERED: ACETAMINOPHEN 500 MG TABLET PO PRN (21:25)
[2024-02-15] MEDS ORDERED: ONDANSETRON 4 MG/2 ML VIAL IVP PRN (21:25)
[2024-02-15] MEDS: BACLOFEN 10 MG TABLET PO STA (21:33)
[2024-02-15 22:09] LABS: BILIRUBIN,URINE NEGATIVE (NEGATIVE); GLUCOSE, URINE (UA) NEGATIVE (NEGATIVE); KETONES,URINE (UA) NEGATIVE (NEGATIVE); LEUKOCYTE ESTERASE, URINE NEGATIVE (NEGATIVE); NITRITE,URINE NEGATIVE (NEGATIVE); OCCULT BLOOD,URINE NEGATIVE (NEGATIVE); PH,URINE 6.5 PH (5.0-7.5); PROTEIN,URINE NEGATIVE (NEGATIVE); UROBILINOGEN,URINE 0.2 (NORMAL) E.U./dL (NORMAL)
[2024-02-15 22:14] LABS: CLARITY,URINE CLEAR (CLEAR)
[2024-02-16] MEDS: diazePAM 5 MG TABLET PO STA (00:43)
--- NOTE | 2024-02-16 03:34 | ED Physician Documentation ---
ED Addendum - Addendum Addendum: 02/16/24 03:27 I received signout/turnover of care on this patient from Dr. Sequeira; please see his note for complete H&P. The chief complaint(s), history of present illness, and timeframe(s) have been somewhat difficult to ascertain due to patient exhibiting fluctuating mental status and vague historian. As result, much of this information is provided by the patient's to my colleague (Dr. Sequeira). At the time of turnover of care of this patient, the patient's has gone home. Per the sign-out I received, the chief concerns include low blood pressures at home which were confirmed upon arrival to the ED (but responded to IV fluids), fluctuating mental status, and increasing weakness over his baseline (patient has been wheelchair-bound for nearly 1 year, unclear diagnosis but ALS has apparently been entertained as one possible explanation, workup has been ongoing at the [facility]). Testing on this ED visit has not yielded diagnostic/explicatory results. Patient continues to exhibit fluctuating mental status, generalized weakness that is reportedly significantly worse than baseline. Patient needs further testing in the inpatient setting; given his underlying medical history, particularly his neurologic disorder, patient needs higher level of care than [facility]. Unfortunately, several hospitals that were contacted during Dr. Melissa goel (including the [facility] as well as [facility]) were unable to accept this patient, and were too full to even wait list him. I eventually was put in touch with the hospitalist at [facility] (Dr. Olivares) who accepts this patient for transfer to [facility]. During my shift, ED RN informed me that the patient was having increased generalized muscle spasms and was requesting a muscle relaxer. He had received baclofen during Dr. Sequeira's shift. I introduced myself to the patient and find that he is indeed having spastic twitching in all 4 extremities (not rhythmic nor coordinated), appears to wince in pain at times with this. I asked him how long this has been going on and he says "a long time". I asked him if it has been days, weeks, months, or years, and he answers "yes". Eventually, I am able to ascertain from patient that he has had these types of muscle spasms for several months, possibly up to a year. He is given 5 mg p.o. Valium and, on reevaluation, he is resting comfortably and no longer is having visible spasms.
[2024-02-16 04:39] VITALS: BP 92/57; O2SAT 95
[2024-02-16] MEDS ORDERED: PANTOPRAZOLE 40 MG TABLET PO SCH (07:00)
== END 2024-02-16 05:00 | disposition short-term general hospital (02) ==
LOC: EDUNIT# → ED 16:35
DX: M62.81 Muscle weakness (generalized) (principal); I95.9 Hypotension, unspecified; R41.0 Disorientation, unspecified; M62.838 Other muscle spasm; J44.9 Chronic obstructive pulmonary disease, unspecified; F17.200 Nicotine dependence, unspecified, uncomplicated; D64.9 Anemia, unspecified; E87.3 Alkalosis; E87.1 Hypo-osmolality and hyponatremia; G82.50 Quadriplegia, unspecified; Z11.52 Encounter for screening for COVID-19; Z99.3 Dependence on wheelchair
CPT/HCPCS: 36415; 70450; 71045; 80053; 80306; 81003; 82077; 82803; 83605; 83735; 85025; 87040; 87633; 93005; 94640; 94664; 96360; 96361; 99285; A9270; J7120; 80048; 81001; 87086

== ENCOUNTER 2024-03-19 10:42 | Outpatient (CLI) | payer OTHER | END 2024-03-19 23:59 | disposition critical access hospital (66) | LOC: EMS 10:42 | DX: M79.10 Myalgia, unspecified site (principal); R25.2 Cramp and spasm | CPT/HCPCS: A0425; A0427 ==

== ENCOUNTER 2024-03-19 10:55 | Emergency (ER) | payer OTHER ==
[2024-03-19 11:03] VITALS: O2SAT 96
[2024-03-19 11:42] LABS: BASOPHILS # (AUTO) 0.1 10^3/uL (0.0-0.1); BASOPHILS % (AUTO) 0.7 %; EOSINOPHILS # (AUTO) 0.1 10^3/uL (0.0-0.7); EOSINOPHILS % (AUTO) 0.8 %; HCT - HEMATOCRIT 30.6 % (42.0-52.0); HGB - HEMOGLOBIN 9.7 g/dL (14.0-18.0); LYMPHOCYTES % (AUTO) 11.1 %; MEAN CORPUSCULAR HEMOGLOBIN 27.6 pg (27.0-31.0); MEAN CORPUSCULAR HGB CONC 31.7 g/dL (32.0-36.0); MEAN CORPUSCULAR VOLUME 86.9 fL (80.0-94.0); MEAN PLATELET VOLUME 9.3 fL (7.4-11.4); MONOCYTES # (AUTO) 0.8 10^3/uL (0.0-1.0); MONOCYTES % (AUTO) 8.5 %; NEUTROPHILS % (AUTO) 78.5 %; PLT - PLATELET COUNT 252 10^3/uL (130-450); RED BLOOD COUNT 3.52 10^6/uL (4.70-6.10); RED CELL DISTRIBUTION WIDTH 15.7 % (12.0-15.0); WHITE BLOOD COUNT 8.9 x10^3/uL (4.8-10.8)
--- NOTE | 2024-03-19 11:43 | ED Physician Documentation ---
History of Present Illness - Stated complaint Stated Complaint: SPASMS - Chief complaint Chief Complaint: General - Additonal information Additional information: 73-year-old male with history of hypertension, COPD, alcohol dependence presents to the emergency department for muscle spasms and twitches. Patient says that over the last year he has had about a 40 pound unintentional weight loss he was seeing a provider with [facility] and was supposed to be admitted for about a week of neurological studies in [place] in January but unfortunately he did not want to follow through with this he did not go and now he feels like his muscle spasms and twitching are getting worse. Patient says that he woke around 2 or 3 AM and started having more spastic spasms in his arms and legs than he ever has before. He does have prescribed baclofen for this he took 1 this morning with little to no relief he says that he does not eat or drink much he does have a known chronic spinal cord injury which is why they wanted to admit him for about a week of neuro studies and investigation. Unsure if he is any fevers or chills he says that he chronically feels cold. Over the last 2 to 3 weeks he is increase his alcohol intake to about a bottle of wine a day but says that with these recent spasms increasing over the last week or so he has been drinking about 1 to 2 glasses at night. PD PAST MEDICAL HISTORY - Past Medical History Past Medical History: Yes Cardiovascular: Hypertension Respiratory: COPD Neuro: Other Endocrine/Autoimmune: None GI: GERD : None HEENT: None Psych: None Musculoskeletal: Chronic back pain Derm: None - Past Surgical History Past Surgical History: Yes Ortho: Spine surgery - Present Medications Home Medications: Ambulatory Orders Medication Instructions Recorded Confirmed Aspirin [Lewis Aspirin] 1 tab PO DAILY 01/28/24 02/15/24 Atorvastatin [Lipitor] 1 tab PO DAILY 01/28/24 02/15/24 Omeprazole 1 cap PO DAILY 01/28/24 02/15/24 Pregabalin [Lyrica] 150 mg PO BID 01/28/24 02/15/24 guaiFENesin [Chest Congestion 1 tab PO DAILY PRN 01/28/24 02/15/24 Relief] traZODone [Desyrel] 50 mg PO DAILY 01/28/24 02/15/24 Baclofen [Lioresal] 10 mg PO TID 02/15/24 02/15/24 Cetirizine [ZyrTEC] 10 mg PO DAILY 02/15/24 02/15/24 Lisinopril [Zestril] 20 mg PO DAILY 02/15/24 02/15/24 Oxycodone HCl 20 mg PO TID PRN 02/15/24 02/15/24 - Allergies Allergies/Adverse Reactions: Allergies Allergy/AdvReac Type Severity Reaction Status Date / Time No Known Drug Allergies Allergy Verified 02/15/24 16:50 - Social History Does the pt smoke?: Yes Smoking Status: Current every day smoker Does the pt drink ETOH?: No ETOH Use: None Does the pt have substance abuse?: No - Immunizations Immunizations are current?: Yes - POLST Patient has POLST: No PD ED PE NORMAL - Vitals Vital signs reviewed: Yes - General General: Alert and oriented X 3, No acute distress, Other (cachectic) - HEENT HEENT: Atraumatic, PERRL - Cardiac Cardiac: Other (tachy) - Respiratory Respiratory: No respiratory distress - Abdomen Abdomen: Normal bowel sounds, Soft - Derm Derm: Normal color, Warm and dry, No rash - Extremities Extremities: No edema, No calf tenderness / cord, Other (generalized weakness) - Neuro Neuro: Alert and oriented X 3, 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, No motor deficit, No sensory deficit, Normal speech, Other (involuntary upper arm and lower leg jerks) Results - Vitals Vitals: Vital Signs - 24 hr 03/19/24 10:59 Temperature 37.3 C Heart Rate 129 H Respiratory 20 Rate Blood Pressure 160/80 H O2 Saturation 96 Oxygen O2 Source Room air - Labs Labs: Laboratory Tests 03/19/24 03/19/24 11:38 11:38 WBC 8.9 RBC 3.52 L Hgb 9.7 L Hct 30.6 L MCV 86.9 MCH 27.6 MCHC 31.7 L RDW 15.7 H Plt Count 252 MPV 9.3 Neut # (Auto) 7.0 H Lymph # (Auto) 1.0 L [place] # (Auto) 0.8 Eos # (Auto) 0.1 Baso # (Auto) 0.1 Absolute Nucleated RBC 0.00 Nucleated RBC % 0.0 Sodium 135 Potassium 4.4 Chloride 102 Carbon Dioxide 26 Anion Gap 7.0 BUN 8 Creatinine 0.6 Estimated GFR (MDRD) 133 Glucose 90 Calcium 9.0 Magnesium 1.7 Total Bilirubin 0.3 AST 13 ALT 6 L Alkaline Phosphatase 69 Total Protein 5.9 L Albumin 3.6 Globulin 2.3 Albumin/Globulin Ratio 1.6 Lipase 22 PD Medical Decision Making - ED course ED course: 73-year-old male presents emergency department for involuntary bilateral upper and lower extremity muscle jerks and spasms. Patient is established with [facility] neurology outpatient, there was discussion of possible ALS but patient needed further workup and evaluation for this. Labs are complete for further evaluat ion to further investigate possible electrolyte abnormalities that could be contributing to muscle spasms and cramps and his potassium magnesium are unremarkable he does have some anemia, hemoglobin 9.7 but this is stable, last hemoglobin was in February and it was also 9.6. Today hemoglobin 9.7. He is given a liter of IV fluid as he was tachycardic upon arrival and that did significantly improve his heart rate he is most likely dehydrated. He was also given additional dose of baclofen here in the emergency department. It was stressed to the patient that he needs to follow-up with [facility] neurology outpatient for further evaluation of his muscle spasms and twitches as well as his unintentional weight loss as this could be ALS. Patient as well as his understand the importance of this they understand that this needs to be worked up further outpatient there is no further workup emergently that is indicated here in the emergency department. All questions answered patient safe for discharge at this time. Departure - Departure Disposition: 01 Home, Self Care Clinical Impression: Muscle spasm, Cachexia Instructions: Muscle Spasm Comments: Thank you for trusting us with your care. We have given you a liter of IV fluid here in the emergency department as well as checked your labs. We are not seeing any acute electrolyte abnormalities that could be contributing to your muscle spasms that you are experiencing. As we discussed it is very important that you follow-up with the [facility] neurology team and further pursue the admission for further evaluation of your unintentional weight loss and these muscle spasms. What ever is going on it is going to continue to get worse until you are able to get some more solid answers. Make sure that you are trying to get plenty of protein in your diet such as protein shakes drinking plenty of fluids as well as the additional electrolyte such as liquid IV and follow-up with the [facility] as soon as possible. Please avoid all alcohol until your able to follow up with neuro Forms: PCP List
[2024-03-19 11:55] LABS: ALBUMIN 3.6 g/dL (3.2-5.5); ALBUMIN/GLOBULIN RATIO 1.6 (1.0-2.2); BILIRUBIN,TOTAL 0.3 mg/dL (0.2-1.0); CREATININE 0.6 mg/dL (0.6-1.3); MAGNESIUM 1.7 mg/dL (1.7-2.3); POTASSIUM 4.4 mmol/L (3.5-4.5); TOTAL PROTEIN 5.9 g/dL (6.4-8.9)
[2024-03-19] MEDS: SODIUM CHLORIDE 0.9% 1,000 ML IV ONE (12:04)
[2024-03-19] MEDS: BACLOFEN 10 MG TABLET PO STA (12:45)
[2024-03-19 12:52] VITALS: BP 150/63
== END 2024-03-19 12:50 | disposition home or self-care (01) ==
LOC: EDUNIT# → ED 10:55
DX: M62.838 Other muscle spasm (principal); R63.4 Abnormal weight loss; F17.200 Nicotine dependence, unspecified, uncomplicated
CPT/HCPCS: 36415; 80053; 83690; 83735; 85025; 99283; 99284; A9270

== ENCOUNTER 2025-04-16 09:24 | Observation (INO) ==
--- NOTE | 2025-04-16 09:48 | ED Physician Documentation ---
History of Present Illness Stated complaint Stated Complaint: TINGLES, BODY ACHES, TREMORS Chief complaint Chief Complaint: General History obtained from History obtained from: Family Additonal information Additional information: 74-year-old gentleman with ongoing heavy tobacco abuse, chronic narcotic use due to chronic pain, spinal cord injury with tetraplegia has been having a bad year with pulmonary infections. Most recently seen by me on March 05 with persistent infiltrates on CT with recommendation for 4 to 6-week follow-up. Since that time has followed up with PCP. Over the last few weeks continues to have cough, and per the [facility], she recognizes the name tobramycin. He has excessive sleepiness, cough and has had tremors and chills since early this morning. He is only awake for an hour or 2 at a time but continues to smoke heavily when awake. He is not eating much. Most of the history from the due to patient sleepiness and encephalopathy. Vonda Coma Scale Assess Eye opening: To Voice Verbal response: None Motor response: Localizes to Pain Total score: 9 Meds/Allgy Home Medications Ambulatory Orders Medication Instructions Recorded Confirmed aspirin 81 mg chewable tablet (St 1 tab PO DAILY 01/2703/22/25 Merlin Aspirin) omeprazole 40 mg capsule,delayed 1 cap PO DAILY 03/22/25 release pregabalin 150 mg capsule (Lyrica) 150 mg PO TID 01/2703/22/25 cyanocobalamin (vitamin B-12) 1,000 mcg PO DAILY 08/2003/22/25 1,000 mcg tablet (Vitamin B-12) hydroxyzine HCl 10 mg tablet 10 mg PO TID PRN spasms # 20 tabs 10/14/24 03/22/25 mirtazapine 30 mg tablet 30 mg PO HS 02/03/25 5 baclofen 20 mg tablet 20 mg PO TID 02/05/25 cetirizine 10 mg tablet (24Hour 10 mg PO DAILY PRN all ergy symptoms 02/05/25 03/22/25 Allergy) cholecalciferol (vitamin D3) 25 25 mcg PO DAILY 03/22/25 mcg (1,000 unit) tablet (Vitamin D3) guaifenesin 600 mg tablet, 600 mg PO BID PRN cough 11/2703/22/25 extended release 12 hr (Mucinex) meloxicam 15 mg tablet 15 mg PO DAILY 02/05/2503/05 tizanidine 2 mg capsule 2 mg PO TID muscle spasticit y 02/05/25 03/22/25 trazodone 150 mg tablet 150 mg PO HS 02/05/25 ferrous sulfate 325 mg (65 mg 325 mg PO DAILYWM #30 ta bs 02/06/25 03/22/25 iron) tablet lactulose 20 gram oral packet 20 g PO BID #60 ea 03/0103/22/25 methocarbamol 500 mg tablet 500 mg PO BID 03/01/25 Augmentin 875 mg-potassium 1 tab PO BID #10 tabs 03/0503/22/25 clavulanate 125 mg tablet azithromycin 250 mg tablet 250 mg PO DAILY 6 days #6 t abs 03/05/25 03/22/25 oxycodone 20 mg tablet 20 mg PO TID PRN pain #84 ta bs 04/15/25 Allergies Allergies Allergy/AdvReac Type Severity Reaction Status Date / Time No Known Drug Allergies Allergy Verified 04/16/25 09:43 PFSH Active Problems All Active Problems (Updated 04/16/25 @ 11:46 by Tal Sequeira MD) Encephalopathy acute (Acute) Laryngeal edema (Acute) Mycobacterial infection, non-TB (Acute) Chronic pain after spinal surgery (Acute) Somnolence (Acute) Blood D-dimer assay positive (Acute) Pneumonia (Acute) Iron deficiency anemia, unspecified (Acute) Acute dyspnea (Acute) DVT (deep venous thrombosis) (Acute) Narcotic drug use (Acute) Callous ulcer, limited to breakdown of skin (Acute) Muscle spasticity (Acute) Polyneuropathy, unspecified (Acute) Gastro-esophageal reflux disease without esophagitis (Acute) Essential (primary) hypertension (Acute) Peripheral vascular disease, unspecified (Acute) Nicotine dependence, unspecified, uncomplicated (Acute) Hyperlipidemia, unspecified (Acute) Nicotine dependence (Acute) B12 deficiency (Acute) Esophageal obstruction (Acute) Abnormal finding on lung imaging (Acute) Benign prostatic hyperplasia with lower urinary tract symptoms (Acute) Cannabis abuse, uncomplicated (Acute) Anxiety disorder, unspecified (Acute) Anorexia (Acute) Chronic constipation (Acute) Tetraplegia (Acute) HTN (hypertension) (Acute) COPD (chronic obstructive pulmonary disease) (Chronic) Degenerative disease of nervous system, unspecified (Acute) Cervical disc disorder with myelopathy, unspecified cervical region (Acute) Medical History Medical History History of hypertension History of COPD Adenoma of colon Iron deficiency anemia, unspecified Surgical History Surgical History Fusion of spine, cervical region Family History Family History Father Cancer Epilepsy Mother Emphysema lung Social History Social History (Updated 04/16/25 @ 09:45 by Mirela Ponce RN) Smoking Status: Current every day smoker Number of Years Smoked: 59 How many cigarettes a day do you smoke? (20 cigarettes=1 Pk): 20 Second hand tobacco smoke exposure: No Do you dip or chew tobacco?: No Do you vape?: No Patient requests smoking cessation consult: No Initiate information on smoking cessation: No Living arrangement: At home Marital Status: Living Condition: With spouse/s.o. Support Person: Yes Physical Activity: Chairfast Level: Assisted Do you feel safe in your home environment?: Yes History of physical, verbal, emotional, or financial abuse?: No ETOH Use: None Frequency: Daily ETOH - Additional Notes: reports "a couple" of glasses of wine every night. states has not had any for several days. 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 He arouses very briefly to name but not enough that he can participate in history. Respiratory Rhonchorous at both bases with diminished right base breath sounds. Cardiovascular normal heart rate noted and regular rhythm noted Gastrointestinal abdomen soft to palpation and nontender to palpation Neurology GCS calculation - Eye opening: To Voice Verbal response: None Motor response: Localizes to Pain Vonda Coma Scale total score: 9 Results Vitals Vitals: Vital Signs - 24 hr 04/16/25 09:25 04/16/25 11:42 04/16/25 11:53 Temperature 36.6 C Temperature Source Oral Pulse Rate 65 58 L 57 L Respiratory Rate 22 20 12 Blood Pressure 149/72 H 95/49 L 143/81 H O2 Saturation 95 93 92 O2 Source Room air Room air Pain Intensity 10 04/16/25 12:06 Temperature Temperature Source Pulse Rate 58 L Respiratory Rate 12 Blood Pressure 99/56 L O2 Saturation 93 O2 Source Pain Intensity Oxygen O2 Source Room air Labs Labs: Laboratory Tests 04/16/25 04/16/25 04/16/25 09:45 09:59 10:00 WBC 7.7 RBC 4.64 L Hgb 12.9 L Hct 41.7 L MCV 89.9 MCH 27.8 MCHC 30.9 L RDW 20.6 H Plt Count 215 MPV 9.7 Neut # (Auto) 5.5 Lymph # (Auto) 0.9 L Andrew # (Auto) 0.8 Eos # (Auto) 0.5 Baso # (Auto) 0.1 Absolute Nucleated RBC 0.00 Nucleated RBC % 0.0 RBC Morph Micro Appear 2+ HYPOCHROMASIA VBG pH 7.405 VBG pCO2 37.5 L VBG pO2 71.6 H VBG HCO3 23.7 VBG Total CO2 24.9 VBG O2 Saturation 97.0 H VBG Base Excess -1.2 Sodium Potassium Chloride Carbon Dioxide Anion Gap BUN Creatinine Estimated GFR (MDRD) Glucose Lactic Acid Calcium Magnesium Total Bilirubin AST ALT Alkaline Phosphatase Ammonia Total Protein Albumin Globulin Albumin/Globulin Ratio Nasal Adenovirus (PCR) NOT DETECTED Nasal B. parapertussis DNA (PCR) NOT DETECTED Nasal Coronavir 229E PCR NOT DETECTED Nasal Coronavir HKU1 PCR NOT DETECTED Nasal Coronavir NL63 PCR NOT DETECTED Nasal Coronavir OC43 PCR NOT DETECTED Nasal Enterovir/Rhinovir PCR NOT DETECTED Nasal Influenza B PCR NOT DETECTED Nasal Influenza A PCR NOT DETECTED Nasal Parainfluen 1 PCR NOT DETECTED Nasal Parainfluen 2 PCR NOT DETECTED Nasal Parainfluen 3 PCR NOT DETECTED Nasal Parainfluen 4 PCR NOT DETECTED Nasal RSV (PCR) NOT DETECTED Nasal B.pertussis DNA PCR NOT DETECTED Nasal C.pneumoniae (PCR) NOT DETECTED Ariel Human Metapneumo PCR NOT DETECTED Nasal M.pneumoniae (PCR) NOT DETECTED Nasal SARS-CoV-2 (PCR) NOT DETECTED Ethyl Alcohol 04/16/25 04/16/25 04/16/25 10:00 10:00 10:05 WBC RBC Hgb Hct MCV MCH MCHC RDW Plt Count MPV Neut # (Auto) Lymph # (Auto) Andrew # (Auto) Eos # (Auto) Baso # (Auto) Absolute Nucleated RBC Nucleated RBC % RBC Morph Micro Appear 2+ ANISOCYTOSIS 1+ OVALOCYTES VBG pH VBG pCO2 VBG pO2 VBG HCO3 VBG Total CO2 VBG O2 Saturation VBG Base Excess Sodium 139 Potassium 4.2 Chloride 106 Carbon Dioxide 28 Anion Gap 5.0 L BUN 30 H Creatinine 1.4 H Estimated GFR (MDRD) 50 L Glucose 118 H Lactic Acid 1.6 Calcium 8.4 L Magnesium 2.5 H Total Bilirubin 0.3 AST 9 L ALT 5 L Alkaline Phosphatase 84 Ammonia 33.7 Total Protein 6.0 L Albumin 3.9 Globulin 2.1 Albumin/Globulin Ratio 1.9 Nasal Adenovirus (PCR) Nasal B. parapertussis DNA (PCR) Nasal Coronavir 229E PCR Nasal Coronavir HKU1 PCR Nasal Coronavir NL63 PCR Nasal Coronavir OC43 PCR Nasal Enterovir/Rhinovir PCR Nasal Influenza B PCR Nasal Influenza A PCR Nasal Parainfluen 1 PCR Nasal Parainfluen 2 PCR Nasal Parainfluen 3 PCR Nasal Parainfluen 4 PCR Nasal RSV (PCR) Nasal B.pertussis DNA PCR Nasal C.pneumoniae (PCR) Ariel Human Metapneumo PCR Nasal M.pneumoniae (PCR) Nasal SARS-CoV-2 (PCR) Ethyl Alcohol < 10.0 Rads (name of study) CT of the head was unremarkable: Relevant Findings:: Final report received and EMP independent interpretation of test (NAD) PD Medical Decision Making ED course ED course: This is a 74-year-old gentleman with the above medical history who presents for reported shaking chills, but as per the and all of the history is from her because he is too encephalopathic to provide any history. My suspicion is for polypharmacy, he is on numerous psychoactive medications including but not limited to baclofen, pregabalin, tizanidine, trazodone, oxycodone. Workup in the emergency department demonstrates unremarkable head radiography with CT. Chest CT showing improvement in infiltrates consistent with Mycobacterium, the radiologist noted hyperemia of the vocal cords with recommendation either for repeat soft tissue neck CT at a later date versus nasolaryngoscopy. Blood work including CBC, CMP, ammonia, and blood alcohol testing were notable for MADONNA and moderate anemia better than prior. Spoke with Dr. Baltazar for admission at 11:44 AM, but at that time his blood pressure had trended down so we will order some more fluids and repeated because the decision now needs to be made whether he needs ICU status or floor status. He does look ill and I queried CODE STATUS with the . She thinks he is DNR but needs to double check the paperwork at home. Discharge Plan Discharge Patient Disposition: ED Place in Observation Condition: Serious Clinical Impression: Cervical disc disorder with myelopathy, unspecified cervical region, Tetraplegia, Mycobacterial infection, non-TB, Laryngeal edema, Encephalopathy acute Prescriptions: No Action oxycodone 20 mg tablet 20 mg PO TID PRN (Reason: pain) Qty: 84 0RF omeprazole 40 MG capsule,delayed release(DR/EC) 1 cap PO DAILY aspirin [[facility] [place] Aspirin] 81 MG tablet,chewable 1 tab PO DAILY pregabalin [Lyrica] 150 MG capsule 150 mg PO TID cyanocobalamin (vitamin B-12) [Vitamin B-12] 1,000 mcg tablet 1,000 mcg PO DAILY hydroxyzine HCl 10 mg tablet 10 mg PO TID PRN (Reason: spasms) Qty: 20 0RF baclofen 20 mg tablet 20 mg PO TID trazodone 150 mg tablet 150 mg PO HS cetirizine [24Hour Allergy] 10 mg tablet 10 mg PO DAILY PRN (Reason: allergy symptoms) cholecalciferol (vitamin D3) [Vitamin D3] 25 mcg (1,000 unit) tablet 25 mcg PO DAILY guaifenesin [Mucinex] 600 mg tablet extended release 12hr 600 mg PO BID PRN (Reason: cough) meloxicam 15 mg tablet 15 mg PO DAILY tizanidine 2 mg capsule 2 mg PO TID ferrous sulfate 325 mg (65 mg iron) Tablet 325 mg PO DAILYWM Qty: 30 0RF amoxicillin-pot clavulanate 875-125 mg tablet 1 tab PO BID Qty: 10 0RF azithromycin 250 mg tablet 250 mg PO DAILY 6 Days Qty: 6 0RF Rx Instructions: 2 on day 1, then 1 daily for a total of 5 days mirtazapine 30 mg tablet 30 mg PO HS methocarbamol 500 mg tablet 500 mg PO BID lactulose 20 gram packet 20 g PO BID Qty: 60 5RF Print Language: Kinyarwanda Stand Alone Forms: PCP List
--- OUTSIDE RECORDS SUMMARY | 2025-04-16 09:50 | EXTERNAL MEDICAL SUMMARY RPT | Continuity of Care Document ---
Author Organization Todd Address [address] [place] [id number] Phone Problems date description facility 2025-02-05 11:36 Acute respiratory failure with hypoxia [facility] 2025-02-06 11:03 Iron deficiency anemia, unspeci fied [facility] 2025-02-06 11:03 Polyneuropathy, unspecified [facility] 2025-02-06 11:03 Chronic obstructive pulmonary disease with (acute) exacerbation [facility] 2025-02-06 11:03 Acute respiratory failure with hypoxia [facility] 2025-02-06 11:09 Iron deficiency anemia, unspeci fied [facility] 2025-02-06 11:09 Polyneuropathy, unspecified [facility] 2025-02-06 11:09 Chronic obstructive pulmonary disease with (acute) exacerbation [facility] 2025-02-06 11:09 Acute respiratory failure with hypoxia [facility] 2025-02-06 11:12 Iron deficiency anemia, unspeci fied [facility] 2025-02-06 11:12 Polyneuropathy, unspecified [facility] 2025-02-06 11:12 Chronic obstructive pulmonary disease with (acute) exacerbation [facility] 2025-02-06 11:12 Acute respiratory failure with hypoxia [facility] 2025-02-06 12:17 Iron deficiency anemia, unspeci fied [facility] 2025-02-06 12:17 Polyneuropathy, unspecified i [facility] 2025-02-06 12:17 Chronic obstructive pulmonary disease with (acute) exacerbation [facility] 2025-02-06 12:17 Acute respiratory failure with hypoxia [facility] 2025-02-07 05:52 Iron deficiency anemia, unspeci fied [facility] 2025-02-07 05:52 Polyneuropathy, unspecified [facility] 2025-02-07 05:52 Chronic obstructive pulmonary disease with (acute) exacerbation [facility] 2025-02-07 05:52 Acute respiratory failure with hypoxia [facility] 2025-02-08 07:02 Iron deficiency anemia, unspeci fied [facility] 2025-02-08 07:02 Polyneuropathy, unspecified [facility] 2025-02-08 07:02 Chronic obstructive pulmonary disease with (acute) exacerbation [facility] 2025-02-08 07:02 Acute respiratory failure with hypoxia [facility] 2025-02-08 07:02 Cervical disc disord er with myelopathy, unspecified cervical region [facility] 2025-02-08 07:02 Other muscle spasm [facility] 2025-02-08 07:02 Nonspecific low blood-pressure reading [facility] 2025-02-08 07:02 Cough, unspecified [facility] 2025-02-08 07:02 Other forms of dyspnea [facility] 2025-02-08 07:02 Paresthesia of skin [facility] 2025-02-08 07:02 Tremor, unspecified [facility] 2025-02-08 07:02 Pain, unspecified [facility] 2025-02-08 07:02 Weakness [facility] 2025-02-09 08:20 Iron deficiency anemia, unspeci fied [facility] 2025-02-09 08:20 Polyneuropathy, unspecified [facility] 2025-02-09 08:20 Chronic obstructive pulmonary disease with (acute) exacerbation [facility] 2025-02-09 08:20 Acute respiratory failure with hypoxia [facility] 2025-02-09 08:20 Shortness of breath [facility] 2025-02-10 13:02 Iron deficiency anemia, unspeci fied [facility] 2025-02-10 13:02 Polyneuropathy, unspecified i [facility] 2025-02-10 13:02 Chronic obstructive pulmonary disease with (acute) exacerbation [facility] 2025-02-10 13:02 Acute respiratory failure with hypoxia [facility] 2025-02-10 13:02 Shortness of breath [facility] 2025-02-10 13:46 Iron deficiency anemia, unspeci fied [facility] 2025-02-10 13:46 Polyneuropathy, unspecified [facility] 2025-02-10 13:46 Chronic obstructive pulmonary disease with (acute) exacerbation [facility] 2025-02-10 13:46 Acute respiratory failure with hypoxia [facility] 2025-02-10 13:46 Shortness of breath [facility] 2025-02-10 14:16 Iron deficiency anemia, unspeci [facility] 2025-02-10 14:16 Polyneuropathy, unspecified [facility] 2025-02-10 14:16 Chronic obstructive pulmonary disease with (acute) exacerbation [facility] 2025-02-10 14:16 Acute respiratory failure with hypoxia [facility] 2025-02-10 14:16 Shortness of breath [facility] 2025-02-15 11:59 Iron deficiency anemia, unspeci [facility] 2025-02-15 11:59 Polyneuropathy, unspecified [facility] 2025-02-15 11:59 Chronic obstructive pulmonary disease with (acute) exacerbation [facility] 2025-02-15 11:59 Acute respiratory failure with hypoxia [facility] 2025-02-15 11:59 Other muscle spasm [facility] 2025-02-15 11:59 Nonspecific low blood-pressure reading [facility] 2025-02-15 11:59 Cough, unspecified [facility] 2025-02-15 11:59 Shortness of breath [facility] 2025-02-15 11:59 Other forms of dyspnea [facility] 2025-02-15 11:59 Paresthesia of skin [facility] 2025-02-15 11:59 Tremor, unspecified [facility] 2025-02-15 11:59 Pain, unspecified [facility] 2025-02-15 11:59 Weakness [facility] 2025-02-19 14:01 Shortness of breath [facility] 2025-02-22 10:24 Iron deficiency anemia, unspeci fied [facility] 2025-02-22 10:24 Polyneuropathy, unspecified i [facility] 2025-02-22 10:24 Chronic obstructive pulmonary disease with (acute) exacerbation [facility] 2025-02-22 10:24 Acute respiratory failure with hypoxia [facility] 2025-02-22 10:24 Other muscle spasm [facility] 2025-02-22 10:24 Nonspecific low blood-pressure reading [facility] 2025-02-22 10:24 Cough, unspecified [facility] 2025-02-22 10:24 Shortness of breath [facility] 2025-02-22 10:24 Other forms of dyspnea [facility] 2025-02-22 10:24 Paresthesia of skin [facility] 2025-02-22 10:24 Tremor, unspecified idronny [facility] 2025-02-22 10:24 Weakness [facility] 2025-03-02 00:01 Essential (primary) hypertensio n [facility] 2025-03-02 00:01 Acute embolism and t hrombosis of unspecified deep veins of unspecified lower extremity [facility] 2025-03-02 00:01 Other constipation [facility] 2025-03-02 00:01 Dyspnea, unspecified [facility] 2025-03-02 08:22 Acute embolism and t hrombosis of unspecified deep veins of unspecified lower extremity [facility] 2025-03-04 08:53 Acute embolism and t hrombosis of unspecified deep veins of unspecified lower extremity [facility] 2025-03-04 08:56 Acute embolism and t hrombosis of unspecified deep veins of unspecified lower extremity [facility] 2025-03-04 08:58 Acute embolism and t hrombosis of unspecified deep veins of unspecified lower extremity [facility] 2025-03-05 10:31 Essential (primary) hypertensio n [facility] 2025-03-05 10:31 Other constipation [facility] 2025-03-05 10:31 Dyspnea, unspecified [facility] 2025-03-05 13:08 Essential (primary) hypertensio n [facility] 2025-03-05 13:08 Acute embolism and t hrombosis of unspecified deep veins of unspecified lower extremity [facility] 2025-03-05 13:08 Other constipation [facility] 2025-03-05 13:08 Dyspnea, unspecified [facility] 2025-03-05 16:44 Pneumonia, unspecified [facility] 2025-03-06 00:03 Essential (primary) hypertensio n [facility] 2025-03-06 00:03 Other constipation [facility] 2025-03-06 00:03 Dyspnea, unspecified [facility] 2025-03-08 06:37 Pneumonia, unspecified [facility] 2025-03-08 12:43 Pneumonia, unspecified [facility] 2025-03-08 16:31 Essential (primary) hypertensio n [facility] 2025-03-08 16:31 Other constipation [facility] 2025-03-08 16:31 Dyspnea, unspecified [facility] 2025-03-09 11:53 Pneumonia, unspecified [facility] 2025-03-09 11:53 Abnormal coagulation profile [facility] 2025-03-09 14:21 Dyspnea, unspecified [facility] 2025-03-10 14:19 Pneumonia, unspecified [facility] 2025-03-10 14:19 Abnormal coagulation profile [facility] 2025-03-10 14:29 Pneumonia, unspecified organism [facility] 2025-03-10 14:29 Abnormal coagulation profile [facility] 2025-03-11 05:55 Acute embolism and t hrombosis of unspecified deep veins of unspecified lower extremity [facility] 2025-03-11 05:56 Acute embolism and t hrombosis of unspecified deep veins of unspecified lower [facility] Results/Labs test date facility value unit notes Result panel 1 NUCLEATED RED BLOOD CELLS AUTO 2025-02-05 10:30 [facility] 0.0 /100wbc (missing) NRBC ABSOLUTE COUNT (AUTO) 2025-02-05 10:30 [facility] 0.00 x10 3/ul (missing) BASOPHILS # (AUTO) 2025-02-05 10:30 [facility] 0.1 10 3/ul (missing) BILIRUBIN,TOTAL 2025-02-05 10:30 [facility] 0.3 mg /dl As of February 2023 testing method has changed, this may include reference ranges. EOSINOPHILS # (AUTO) 2025-02-05 10:30 [facility] 0.4 10 3/ul (missing) MONOCYTES # (AUTO) 2025-02-05 10:30 [facility] 0.7 10 3/ul (missing) CREATININE 2025-02-05 10:30 [facility] 1.3 mg/dl As of February 2023 testing method has changed, this may include reference ranges. LYMPHOCYTES # (AUTO) 2025-02-05 10:30 [facility] 1.6 10 3/ul (missing) ALBUMIN/GLOBULIN RATIO 2025-02-05 10:30 [facility] 1.7 (missing) (missing) MEAN PLATELET VOLUME 2025-02-05 10:30 [facility] 10.2 fl (missing) GLUCOSE 2025-02-05 10:30 [facility] 100 mg/dl As of February 2023 testing method has changed, this may include reference ranges. CHLORIDE 2025-02-05 10:30 [facility] 100 mmol/l As of February 2023 testing method has changed, this may include reference ranges. VITAMIN B12 2025-02-05 10:30 [facility] 1183 pg/ml Social History date description facility
[2025-04-16] MEDS: SODIUM CHLORIDE 0.9% 1,000 ML IV STA ×2 (10:09→11:53)
[2025-04-16 10:18] LABS: HCT - HEMATOCRIT 41.7 % (42.0-52.0); HGB - HEMOGLOBIN 12.9 g/dL (14.0-18.0); MEAN PLATELET VOLUME 9.7 fL (7.4-11.4); NRBC ABSOLUTE COUNT (AUTO) 0.00 x10^3/uL; NUCLEATED RED BLOOD CELLS AUTO 0.0 /100WBC; PLT - PLATELET COUNT 215 10^3/uL (130-450); RED CELL DISTRIBUTION WIDTH 20.6 % (12.0-15.0)
[2025-04-16 10:27] LABS: VBG BASE EXCESS -1.2 mmol/L (-2 - +2); VBG PCO2 37.5 mmHg (41-51); VBG PH 7.405 (7.31-7.41); VBG PO2 71.6 mmHg (25-47); VBG TOTAL CO2 24.9 mmol/L (24-29)
[2025-04-16 10:31] LABS: ALT ALANINE AMINOTRANSFERASE 5 IU/L (10-60); AST ASPARTATE AMINOTRANSFERASE 9 IU/L (10-42); BUN - BLOOD UREA NITROGEN 30 mg/dL (6-20); CARBON DIOXIDE - CO2 28 mmol/L (21-32); CREATININE 1.4 mg/dL (0.6-1.3); ETOH - ETHANOL < 10.0 mg/dL; GFR - MDRD 50 (>89)
[2025-04-16 10:52] LABS: B. PARAPERTUSSIS- RESP PCR PAN NOT DETECTED; B. PERTUSSIS- RESP PCR PANEL NOT DETECTED; C. PNEUMONIAE- RESP PCR PANEL NOT DETECTED; CORONAVIRUS 229E-RESP PCR NOT DETECTED; CORONAVIRUS HKU1-RESP PCR NOT DETECTED; CORONAVIRUS NL63-RESP PCR NOT DETECTED; CORONAVIRUS OC43-RESP PCR NOT DETECTED; HUMAN METAPNEUMOVIRUS NOT DETECTED; INFLUENZA A- RESP PCR PANEL NOT DETECTED; INFLUENZA B - RESP PCR PANEL NOT DETECTED; M. PNEUMONIAE- RESP PCR PANEL NOT DETECTED; PARAINFLUENZA VIRUS 1 NOT DETECTED; PARAINFLUENZA VIRUS 2 NOT DETECTED; PARAINFLUENZA VIRUS 4 NOT DETECTED; RHINOVIRUS/ENTEROVIRUS NOT DETECTED; RSV- RESP PCR PANEL NOT DETECTED; SARS-CoV-2 -RESP PCR PANEL NOT DETECTED
--- NOTE | 2025-04-16 11:21 | CT Report ---
PROCEDURE: CT Head WO INDICATIONS: AMS TECHNIQUE: CT of the head was performed, without intravenous contrast. Reformats: Coronal and sagittal. For radiation dose reduction, the following was used: automated exposure control, adjustment of mA and/or kV according to patient size. COMPARISON: CT head 08/20/2024 FINDINGS: Image quality: Diagnostic. CSF spaces: Basal cisterns are patent. No extra-axial fluid collections. Ventricles are symmetric in size and shape. Brain: No midline shift. No intracranial masses or hemorrhage. Hypodensities in the subcortical and periventricular white matter are most commonly seen in setting of chronic microvascular ischemic changes. Age-related cerebral and cerebellar volume loss is seen. Intracranial vascular calcifications are noted in the internal carotid arteries. Skull and face: Calvarium and visualized facial bones are intact, without suspicious lesions. Sinuses: Visualized sinuses and mastoids are clear. IMPRESSION: No acute intracranial pathology. Reviewed by: Scott Walsh MD on 04/16/2025 11:19 AM PDT Approved by: Scott Walsh MD on 04/16/2025 11:19 AM PDT Station ID: [id number]
--- NOTE | 2025-04-16 11:29 | CT Report ---
PROCEDURE: CT Chest W INDICATIONS: REEVAL INFILTRATES CONTRAST: 100ml omni 300 TECHNIQUE: After the administration of intravenous contrast, a CT scan of the chest was performed. Images were recorded and evaluated at appropriate window settings. Reformats: axial MIP of the chest, coronal and sagittal. For radiation dose reduction, the following was used: automated exposure control, adjustment of mA and/or kV according to patient size. COMPARISON: None. FINDINGS: Image quality: Diagnostic. Chest wall and lower neck: No thyroid nodule which requires sonographic follow up. No breast mass. No axillary or supraclavicular adenopathy by size. Hyperemia in the region of the vocal cords suggesting possible laryngitis. Lungs and pleura: Atelectasis and traction bronchiectasis involving the superior segment of the right lower lobe, with atelectasis in the basilar portion, with compensatory hyperexpansion of the upper lobe and middle lobe. Mild to moderate centrilobular emphysema. Extensive tree-in-bud opacities in the basilar portion of the left lower lobe as well as bronchiectasis and tree-in-bud opacities in the lingular segment of the left upper lobe. Consider nontuberculous BRONSON chronic pneumonia. There is also focal bronchiectasis in the right middle lobe. No acute airspace consolidation. Findings are similar to previous.. No pleural effusions. No pneumothorax. No suspicious pulmonary nodules which require follow up. Mediastinum: Heart size is normal. No pericardial effusion. No large vessel abnormality. No mediastinal adenopathy by size criteria. Bones: No aggressive osseous abnormality. Upper Abdomen: Unremarkable. IMPRESSION: 1. No acute airspace consolidation. 2. Mild to moderate centrilobular emphysema. 3. Tree-in-bud opacities and areas of bronchiectasis, as well as significant chronic volume loss in the right lower lobe with traction bronchiectasis. Findings suggest chronic infection. Consider BRONSON pneumonia. Consider referral to a heavy equipment service technician if this has not yet occurred. 4. There is hyperemia in the region of the vocal cords, of uncertain chronicity. Recommend correlation for presence or absence of laryngitis. Reviewed by: Kingston Boyer MD on 04/16/2025 11:27 AM PDT Approved by: Kingston Boyer MD on 04/16/2025 11:27 AM PDT Station ID: [id number]
--- NOTE | 2025-04-16 11:47 | HISTORY & PHYSICAL EXAMINATION ---
Chief Complaint Chief Complaint Chief Complaint: Chills, altered mental status History of Present Illness Admitted From Admitted From:: Home History Obtained From Records Reviewed: EMR History obtained from: Patient, patient's Exam Limitations: Patient sleepy History of Present Illness HPI Comment/Other: Patient is a 74-year-old male with a history of a spinal cord injuries, multiple spinal surgeries, COPD not on home oxygen, active tobacco use, who presented initially for chills and altered mentation. Patient woke up and was alert and oriented x 4. He was unclear what brought him to the hospital though. He states that he was having really terrible spasms. was spoken with. She states that around 3 AM, she heard a loud thud in the bathroom. She had noted that he had fallen. He had grabbed the shower curtains, and then fell back on his wheelchair. He did not get hurt or hit his head. This morning, states that she saw him take extra medications by accident. He thought it was much later. Normally, manages medications. She is not sure what exactly he took. After this fact, he kept saying he does not feel good or "right." He was unable to expand on this further. Patient was awake, he was focused on his muscle spasms. He denied any fevers, chills, difficulty breathing, wheezing. He does have a cough, which he states is chronic. For this cough, he sees a second language tutor at the [facility], and has been prescribed ciprofloxacin as well as inhaled tobramycin. Will resume these as able here. [facility] also [facility]. The tells me that his neurological disorder has been continued to be worked up in the outpatient. They have ruled out polymyositis, and ALS. The neurologist believes that this may be result of his chronic back problems and spinal injury. He had a spinal cord injury after worsening sciatica, as well as to cervical spine surgeries that have left him essentially bedbound at baseline. He is to the electric wheelchair to get from the recliner where he sleeps to the bathroom and back. He lives with his who helps with his ADLs. In the ER, his blood pressure varied from 99/56 to 149/72, you saturating 96% on room air, respiratory rate was between 14-20, heart rate was between 58-1 13, and he was afebrile. Lab work was reviewedhe has normal white count, hemoglobin is 12.9, his creatinine is elevated at 1.4, with a baseline of 0.7. Rapid viral panel was negative. Drug screen is positive for oxycodone which he is prescribed, as well as cannabinoids, which he endorses occasional use of. Patient's medical conditions include COPD not on home oxygen, he is currently being treated for what sounds like Pseudomonas pneumonia with ciprofloxacin and inhaled tobramycin, his chronic spinal cord injuries have resulted in chronic pain and opiate dependence as well as muscle spasms for which he is on Lyrica, baclofen, oxycodone. He has no known drug allergies, and has had extensive spinal surgeries. He quit drinking alcohol about a year ago. He still smokes very heavily, up to a pack a day. He does not smoke marijuana anymore, but occasionally does edibles. Meds/Allgy Home Medications Ambulatory Orders Medication Instructions Recorded Confirmed aspirin 81 mg chewable tablet (St 1 tab PO DAILY 01/2704/16/25 Merlin Aspirin) omeprazole 40 mg capsule,delayed 1 cap PO DAILY 04/16/25 release pregabalin 150 mg capsule (Lyrica) 150 mg PO TID 01/2704/16/25 cyanocobalamin (vitamin B-12) 1,000 mcg PO DAILY 08/2004/16/25 1,000 mcg tablet (Vitamin B-12) hydroxyzine HCl 10 mg tablet 10 mg PO TID PRN spasms # 20 tabs 10/14/24 04/16/25 mirtazapine 30 mg tablet 30 mg PO HS 02/03/25 5 baclofen 20 mg tablet 20 mg PO TID 02/05/25 cholecalciferol (vitamin D3) 25 25 mcg PO DAILY 04/16/25 mcg (1,000 unit) tablet (Vitamin D3) trazodone 150 mg tablet 150 mg PO HS 02/05/25 ferrous sulfate 325 mg (65 mg 325 mg PO DAILYWM #30 ta bs 02/06/25 04/16/25 iron) tablet methocarbamol 500 mg tablet 500 mg PO BID PRN spasms 0 03/01/25 04/16/25 oxycodone 20 mg tablet 20 mg PO TID PRN pain #84 ta bs 04/15/25 04/16/25 Allergies Allergies Allergy/AdvReac Type Severity Reaction Status Date / Time No Known Drug Allergies Allergy Verified 04/16/25 09:43 PFSH Active Problems All Active Problems (Updated 04/16/25 @ 17:33 by Christi Mallory MD) Acute kidney failure (Acute) Laryngeal mass (Acute) Encephalopathy acute (Acute) Laryngeal edema (Acute) Mycobacterial infection, non-TB (Acute) Chronic pain after spinal surgery (Acute) Somnolence (Acute) Blood D-dimer assay positive (Acute) Pneumonia (Acute) Iron deficiency anemia, unspecified (Acute) Acute dyspnea (Acute) DVT (deep venous thrombosis) (Acute) Narcotic drug use (Acute) Callous ulcer, limited to breakdown of skin (Acute) Muscle spasticity (Acute) Polyneuropathy, unspecified (Acute) Gastro-esophageal reflux disease without esophagitis (Acute) Essential (primary) hypertension (Acute) Peripheral vascular disease, unspecified (Acute) Nicotine dependence, unspecified, uncomplicated (Acute) Hyperlipidemia, unspecified (Acute) Nicotine dependence (Acute) B12 deficiency (Acute) Esophageal obstruction (Acute) Abnormal finding on lung imaging (Acute) Benign prostatic hyperplasia with lower urinary tract symptoms (Acute) Cannabis abuse, uncomplicated (Acute) Anxiety disorder, unspecified (Acute) Anorexia (Acute) Chronic constipation (Acute) Tetraplegia (Acute) HTN (hypertension) (Acute) COPD (chronic obstructive pulmonary disease) (Chronic) Degenerative disease of nervous system, unspecified (Acute) Cervical disc disorder with myelopathy, unspecified cervical region (Acute) Medical History Medical History History of hypertension History of COPD Adenoma of colon Iron deficiency anemia, unspecified Surgical History Surgical History Fusion of spine, cervical region Family History Family History Father Cancer Epilepsy Mother Emphysema lung Social History Social History (Updated 04/16/25 @ 09:45 by Mirela Ponce RN) Smoking Status: Current every day smoker Number of Years Smoked: 59 How many cigarettes a day do you smoke? (20 cigarettes=1 Pk): 40 Second hand tobacco smoke exposure: No Do you dip or chew tobacco?: No Do you vape?: No Patient requests smoking cessation consult: Yes Initiate information on smoking cessation: No Living arrangement: At home Marital Status: Living Condition: With spouse/s.o. Support Person: Yes Physical Activity: Chairfast Level: Assisted Home Mobility Equipment: Wheelchair Do you feel safe in your home environment?: Yes History of physical, verbal, emotional, or financial abuse?: No ETOH Use: None Frequency: Daily ETOH - Additional Notes: reports "a couple" of glasses of wine every night. states has not had any for several days. Substance Use: cannabis (any form) Substance Use Details: patient takes cannabis edibles Occupation - Current: Diesel Inspector for construction projects Retired: Yes Known occupational exposures/hazards (Current/Previous): Agent [employer] Service: Yes Dates of Service: [id number] Are you following a diet prescribed by a doctor: No Are you following a special diet: No POLST Patient has POLST: No Review of Systems Constitutional Reports: Fatigue and Weakness; Denies: Fever, Chills, Malaise or Poor appetite Eyes Denies: Pain, Irritation, Blurry vision, Vision loss or Diplopia Ears, nose, mouth, and throat Denies: Ear pain, Hearing loss, Tinnitus, Nose bleeds or Nasal discharge Cardiovascular Denies: Irregular heart rate, chest pain, palpitations, edema, Syncope or shortness of breath with exertion Respiratory Reports: Cough, Sputum production and Wheezing; Denies: Shortness of breath Gastrointestinal Denies: Abdominal pain, Abdominal distention, Nausea, Vomiting, Heartburn, Diarrhea or Constipation Genitourinary Denies: Painful urination, Urinary frequency or Urinary urgency Musculoskeletal Reports: Back pain, Limited range of motion, Stiffness, Muscle pain and Muscle cramps; Denies: Extremity pain, Extremity swelling or Joint pain Integumentary/Breast Denies: Rash, Itching, Dryness, Redness or Skin pain Neurological Reports: Weakness in extremities and Pre-existing deficit; Denies: Headache, General weakness, Numbness in extremities, Abnormal gait or Dizziness Psychiatric Denies: Depression, Anxiety, Mood swings or Panic attacks Endocrine Reports: Fatigue; Denies: Excessive urination or Excessive thirst Hematologic/Lymphatic Denies: Anemia, Easy bruising or Easy bleeding Allergic/Immunologic Reports: Wheezing; Denies: Hives, Tongue swelling or Facial swelling Prior Level of Functionality: Essentially bedbound at baseline. Ambulates with electric wheelchair, spends the day in recliner. Lives with who assists with ADLs. Exam Exam Vital Signs: Vital Signs x48h Temp Pulse Pulse Resp BP BP BP 04/16/25 16:02 97.5 F L 92 20 100/57 L 04/16/25 13:00 97.2 F L 113 H 24 145/111 H 04/16/25 12:36 58 L 17 98/59 L 04/16/25 12:21 59 L 14 98/55 L 04/16/25 12:06 58 L 11 L 99/56 L 04/16/25 12:06 58 L 12 99/56 L 04/16/25 11:53 57 L 12 143/81 H 04/16/25 11:42 58 L 20 95/49 L 04/16/25 09:25 97.8 F 65 22 149/72 H Pulse Ox O2 Flow Rate 04/16/25 16:02 92 04/16/25 13:00 96 0 04/16/25 12:36 90 L 04/16/25 12:21 91 L 04/16/25 12:06 90 L 04/16/25 12:06 93 04/16/25 11:53 92 04/16/25 11:42 93 04/16/25 09:25 95 Constitutional normal general appearance, no apparent distress, abnormal body habitus (thin) and (underweight) and no limitations HENMT normocephalic, head/scalp atraumatic and hearing grossly normal bilaterally Eyes PERRL, EOMs intact bilaterally and conjunctivae normal Neck/C-Spine visual inspection normal, trachea midline and cervical spine nontender Chest inspection of chest normal Respiratory breath sounds equal bilaterally, normal respiratory effort, wheezing noted (expiratory wheezes) and no rales Cardiovascular normal heart rate noted, regular rhythm noted, no gallop, no rub and no murmur Gastrointestinal abdomen normal to inspection, abdomen soft to palpation, nontender to palpation and normoactive bowel sounds Genitourinary no CVA tenderness and bladder normal to palpation Extremities normal to inspection, normal to palpation and no tenderness Neurology Bilateral upper extremity with web analytics developer strength 5 out of 5, flexion/extension 4 out of 5, bilateral lower extremity extension and flexion 3 out of 5, sensation intact in all extremities Psychiatry mental status grossly normal, oriented x3, thought process normal, cooperative and affect normal lethargic, sleepy at times Skin skin color normal, no rash, no lesions and no wounds Conclusion/Plan Problem List (1) Encephalopathy acute: Plan: Resolved - alert & oriented x 4 when seen. Per , most of his day is spent with him sleeping due to use of narcotic pain medication as well as antispasmodics. also thinks that he may have taken a few extra doses of his medications. Medication clearance likely worsened by acute kidney injury. Continue IV fluids. Patient is slowly improving. (2) Acute kidney failure: Plan: Likely prerenal due to decreased p.o. intake. Continue gentle IV fluid rehydration. Patient normally takes "long time to pee and empty bladder," per . Bladder protocol in place, monitor for retention. Qualifiers: Acute renal failure type: unspecified Qualified Code(s): N17.9 - Acute kidney failure, unspecified (3) Polyneuropathy, unspecified: Plan: Patient is actively being worked up at the [facility] with neurology for his polyneuropathy. 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 Has severe weakness in all extremities, spends most of his day in bed, and uses an electric wheelchair to get around. Continue home medications including Lyrica, Zanaflex, trazodone, baclofen, oxycodone, meloxicam. (4) Iron deficiency anemia, unspecified: Plan: Patient with a longstanding history of anemia. Hemoglobin stable, no active bleeding. Transfuse for hemoglobin less than 7. Continue oral iron supplementation. Qualifiers: Iron deficiency anemia type: unspecified iron deficiency Qualified Code(s): D50.9 - Iron deficiency anemia, unspecified (5) COPD (chronic obstructive pulmonary disease): Plan: Patient still actively smoking. Continue to adolescent counselor on smoking cessation. Some active wheezing noted. Continue scheduled DuoNebs. Nicotine patch offered. Qualifiers: COPD type: COPD with acute exacerbation Qualified Code(s): J44.1 - Chronic obstructive pulmonary disease with (acute) exacerbation (6) Laryngeal mass: Plan: On CT of chest - noted vascularity in the region of the vocal cords may be an acute finding or may possibly indicate the presence of a occult mass. Recommend either CT neck with contrast in 2-3 months to document resolution of this finding or referral to ENT for direct visualization. Lab Results Lab results reviewed: Yes 04/16/25 10:00 04/16/25 10:05 Diagnostic Imaging Results Diagnostic Imaging Results: positive Final report reviewed Core Measures Anticipated LOS I expect patient to be DC'd or transferred within 96 hours.: Yes DVT/VTE - Prophylaxis VTE/DVT Device ordered at admit?: Yes VTE/DVT Prophylaxis med ordered at admit?: Yes
[2025-04-16] MEDS ORDERED: SODIUM CHLORIDE FLUSH 0.9% 10 ML SYRINGE IVP PRN (12:41)
[2025-04-16] MEDS ORDERED: ONDANSETRON ODT 4 MG TABLET TL PRN (12:41)
[2025-04-16] MEDS ORDERED: ONDANSETRON 4 MG/2 ML VIAL IVP PRN (12:41)
[2025-04-16] MEDS: LACTATED RINGERS 1,000 ML IV SCH (13:37)
--- NOTE | 2025-04-16 14:34 | PHARMACY PROGRESS NOTE ---
Best Possible Medication History Admit Date and Time: 04/16/25 [id number] Home Medications Medication Instructions Recorded Confirmed Type aspirin 81 mg chewable tablet (St 1 tab PO DAILY 01/2704/16/25 History Merlin Aspirin) omeprazole 40 mg capsule,delayed 1 cap PO DAILY 04/16/25 History release pregabalin 150 mg capsule (Lyrica) 150 mg PO TID 01/2704/16/25 History cyanocobalamin (vitamin B-12) 1,000 mcg PO DAILY 08/2004/16/25 History 1,000 mcg tablet (Vitamin B-12) hydroxyzine HCl 10 mg tablet 10 mg PO TID PRN spasms # 20 tabs 10/14/24 04/16/25 Rx mirtazapine 30 mg tablet 30 mg PO HS 02/03/25 5 History baclofen 20 mg tablet 20 mg PO TID 02/05/25 History cholecalciferol (vitamin D3) 25 25 mcg PO DAILY 04/16/25 History mcg (1,000 unit) tablet (Vitamin D3) trazodone 150 mg tablet 150 mg PO HS 02/05/25 History ferrous sulfate 325 mg (65 mg 325 mg PO DAILYWM #30 ta bs 02/06/25 04/16/25 Rx iron) tablet methocarbamol 500 mg tablet 500 mg PO BID PRN spasms 0 03/01/25 04/16/25 History oxycodone 20 mg tablet 20 mg PO TID PRN pain #84 ta bs 04/15/25 04/16/25 Rx Processed by: Pharmacy Medications reviewed in ED?: Yes Medication History completed: Yes Patient Interview: Pt unable to participate Secondary Source(s): Spouse/Significant other, Pharmacy records and Insurance records [facility] Statement: As the person ultimately responsible for medication therapy, providers are able to order a medication from an existing home medication list in [facility] via the "Reconcile Routine" prior to Confirmation of that medication by direct support staff member. Such practice is discouraged except when the physician, in their clinical judgment, deems that a medical need exists for a medication without regard to previous use.
[2025-04-16 14:47] LABS: AMPHETAMINE SCREEN,URINE NEGATIVE (NEGATIVE); BARBITURATE SCREEN,UR NEGATIVE (NEGATIVE); BENZODIAZEPINES SCREEN, URINE NEGATIVE (NEGATIVE); BUPRENORPHINE SCREEN, URINE NEGATIVE (NEGATIVE); COCAINE SCREEN URINE NEGATIVE (NEGATIVE); METHADONE SCREEN, URINE NEGATIVE (NEGATIVE); METHAMPHETAMINES SCREEN, URINE NEGATIVE (NEGATIVE); OPIATE SCREEN, URINE NEGATIVE (NEGATIVE); THC CANNABINOID SCREEN, URINE POSITIVE (NEGATIVE)
[2025-04-16] MEDS: oxyCODONE 5 MG TABLET PO PRN ×2 (14:58→19:11)
[2025-04-16] MEDS: BACLOFEN 10 MG TABLET PO SCH (14:58)
[2025-04-16] MEDS: IPRATROPIUM/ALBUTEROL 3 ML NEB INH SCH (15:15)
[2025-04-16] MEDS: SODIUM CHLORIDE FLUSH 0.9% 10 ML SYRINGE IVP SCH (18:31)
[2025-04-16] MEDS: CIPROFLOXACIN 250 MG TABLET PO SCH (22:54)
[2025-04-16] MEDS: PREGABALIN 25 MG CAPSULE PO SCH (22:55)
[2025-04-16] MEDS: PREGABALIN 100 MG CAPSULE PO SCH (22:55)
[2025-04-16] MEDS: MIRTAZAPINE 15 MG TABLET PO SCH (22:55)
[2025-04-17] MEDS: PANTOPRAZOLE 40 MG TABLET PO SCH (06:45)
[2025-04-17] MEDS: FERROUS SULFATE 325 MG TABLET PO SCH (07:33)
[2025-04-17 09:05] LABS: HCT - HEMATOCRIT 37.7 % (42.0-52.0); HGB - HEMOGLOBIN 11.8 g/dL (14.0-18.0); MEAN PLATELET VOLUME 9.7 fL (7.4-11.4); PLT - PLATELET COUNT 218.0 10^3/uL (130-450); RED CELL DISTRIBUTION WIDTH 20.3 % (12.0-15.0)
[2025-04-17] MEDS: HEPARIN 5,000 UNIT/ML VIAL SUBQ SCH (09:09)
[2025-04-17] MEDS: CYANOCOBALAMIN 500 MCG TABLET PO SCH (09:09)
[2025-04-17] MEDS: ASPIRIN CHEW 81 MG TABLET PO SCH (09:09)
[2025-04-17] MEDS: CHOLECALCIFEROL 25 MCG TABLET PO SCH (09:09)
[2025-04-17 09:26] LABS: BUN - BLOOD UREA NITROGEN 16.0 mg/dL (6-20); CARBON DIOXIDE - CO2 25.0 mmol/L (21-32); CREATININE 1.0 mg/dL (0.6-1.3); GFR - MDRD 73.0 (>89)
--- NOTE | 2025-04-17 09:32 | PROVIDER PROGRESS NOTE ---
Subjective Subjective Subjective: When patient wakes up, he is alert and oriented. However, he is writhing in pain, and is having diffuse muscle spasms. We have trialed IV Valium, with minimal relief. Patient is still unsafe to go home due to these diffuse muscle spasms. Current Medications Current Medications Current Medications: Current Medications Generic Name Dose Route Start Last Admin Trade Name Freq PRN Reason Stop Dose Admin Albuterol/Ipratropium 3 ml 04/16/25 15:00 04/16/25 20:40 Ipratropium/Albuterol 3 Ml Neb INH 3 ml RTQID ANASTACIA Administration Aspirin 81 mg 04/17/25 09:00 04/17/25 09:09 Aspirin Chew 81 Mg Tablet PO 81 mg DAILY ANASTACIA Administration Baclofen 20 mg 04/16/25 15:00 04/17/25 06:45 Baclofen 10 Mg Tablet PO 20 mg TID ANASTACIA Administration Cholecalciferol 25 mcg 04/17/25 09:00 04/17/25 09:09 Cholecalciferol 25 Mcg Tablet PO 25 mcg DAILY ANASTACIA Administration Ciprofloxacin 250 mg 04/16/25 21:00 04/17/25 09:09 Ciprofloxacin 250 Mg Tablet PO 250 mg BID ANASTACIA Administration Cyanocobalamin 1,000 mcg 04/17/25 09:00 04/17/25 09:09 Cyanocobalamin 500 Mcg Tablet PO 1,000 mcg DAILY ANASTACIA Administration Ferrous Sulfate 325 mg 04/17/25 08:00 04/17/25 07:33 Ferrous Sulfate 325 Mg Tablet PO 325 mg DAILYWM ANASTACIA Administration Heparin Sodium (Porcine) 5,000 unit 04/17/25 09:00 04/17/25 09:09 Heparin 5,000 Unit/Ml Vial SUBQ 5,000 unit BID ANASTACIA Administration Hydroxyzine Pamoate 25 mg 04/16/25 14:44 04/17/25 07:33 Hydroxyzine Pamoate 25 Mg Capsule PO 25 mg TID PRN Administration spasms Mirtazapine 30 mg 04/16/25 21:00 04/16/25 22:55 Mirtazapine 15 Mg Tablet PO 30 mg HS ANASTACIA Administration Ondansetron HCl 4 mg 04/16/25 12:41 Ondansetron Odt 4 Mg Tablet TL Q6HR PRN Nausea / Vomiting Ondansetron HCl 4 mg 04/16/25 12:41 Ondansetron 4 Mg/2 Ml Vial IVP Q6HR PRN Nausea / Vomiting Oxycodone HCl 5 mg 04/16/25 16:09 04/17/25 07:33 Oxycodone 5 Mg Tablet PO 5 mg Q4HR PRN Administration Moderate Pain (Level 4-6) Pantoprazole Sodium 40 mg 04/17/25 07:00 04/17/25 06:45 Pantoprazole 40 Mg Tablet PO 40 mg BIDAC ANASTACIA Administration Pregabalin 100 mg 04/16/25 22:00 04/17/25 06:45 Pregabalin 100 Mg Capsule PO 100 mg TID ANASTACIA Administration Pregabalin 50 mg 04/16/25 22:00 04/17/25 06:45 Pregabalin 25 Mg Capsule PO 50 mg TID ANASTACIA Administration Sodium Chloride 10 ml 04/16/25 12:41 Sodium Chloride Flush 0.9% 10 Ml Syringe IVP PRN PRN NEEDED PER PROVIDER ORDERS Sodium Chloride 10 ml 04/16/25 17:00 04/17/25 09:10 Sodium Chloride Flush 0.9% 10 Ml Syringe IVP 10 ml 0100,0900,1700 ANASTACIA Administration Trazodone HCl 150 mg 04/16/25 21:00 04/16/25 22:54 Trazodone 50 Mg Tablet PO 150 mg HS ANASTACIA Administration Objective Vital Signs/Intake & Output Reviewed Vital Signs: Yes Vital Signs: Vital Signs x48h Temp Pulse Resp BP Pulse Ox O2 Flow Rate 04/17/25 07:55 97.9 F 91 20 148/62 H 92 0 04/17/25 05:10 97.7 F 71 20 139/63 H 95 Intake & Output: Intake & Output 04/14/25 04/15/25 04/16/25 04/17/25 23:59 23:59 23:59 23:59 Intake Total 3000 / 3000 120 / 120 Output Total 725 / 725 200 / 200 Balance 2275 / 2275 -80 / -80 Weight (kg) 58.5 kg Objective Comments/Other: Constitutional normal general appearance, no apparent distress, abnormal body habitus (thin) and (underweight) and no limitations HENMT normocephalic, head/scalp atraumatic and hearing grossly normal bilaterally Eyes PERRL, EOMs intact bilaterally and conjunctivae normal Neck/C-Spine visual inspection normal, trachea midline and cervical spine nontender Chest inspection of chest normal Respiratory breath sounds equal bilaterally, normal respiratory effort, wheezing noted (expiratory wheezes, improved) and no rales Cardiovascular normal heart rate noted, regular rhythm noted, no gallop, no rub and no murmur Gastrointestinal abdomen normal to inspection, abdomen soft to palpation, nontender to palpation and normoactive bowel sounds Genitourinary no CVA tenderness and bladder normal to palpation Extremities normal to inspection, normal to palpation and no tenderness Neurology Bilateral upper extremity with newscast director strength 5 out of 5, flexion/extension 4 out of 5, bilateral lower extremity extension and flexion 3 out of 5, sensation intact in all extremities Psychiatry mental status grossly normal, oriented x3, thought process normal, cooperative and affect normal at times, he wakes with diffuse cramping and in severe pain Skin skin color normal, no rash, no lesions and no wounds Lab Results 04/17/25 08:54 04/17/25 08:54 Other Labs: Lab Results x24hrs 04/17/25 04/16/25 04/16/25 Range/Units 08:54 14:25 10:05 WBC 6.9 (4.8-10.8) x10^3/uL RBC 4.19 L (4.70-6.10) 10^6/uL Hgb 11.8 L (14.0-18.0) g/dL Hct 37.7 L (42.0-52.0) % MCV 90.0 (80.0-94.0) fL MCH 28.2 (27.0-31.0) pg MCHC 31.3 L (32.0-36.0) g/dL RDW 20.3 H (12.0-15.0) % Plt Count 218 (130-450) 10^3/uL MPV 9.7 (7.4-11.4) fL Neut # (Auto) (1.5-6.6) 10^3/uL Lymph # (Auto) (1.5-3.5) 10^3/uL Delta # (Auto) (0.0-1.0) 10^3/uL Eos # (Auto) (0.0-0.7) 10^3/uL Baso # (Auto) (0.0-0.1) 10^3/uL Absolute Nucleated RBC x10^3/uL Nucleated RBC % /100WBC RBC Morph Micro Appear (NORMAL) VBG pH (7.31-7.41) VBG pCO2 (41-51) mmHg VBG pO2 (25-47) mmHg VBG HCO3 (23-28) mmol/L VBG Total CO2 (24-29) mmol/L VBG O2 Saturation (60-80) % VBG Base Excess (-2 - +2) mmol/L Sodium 143 139 (135-145) mmol/L Potassium 3.8 4.2 (3.5-4.5) mmol/L Chloride 112 H 106 (101-111) mmol/L Carbon Dioxide 25 28 (21-32) mmol/L Anion Gap 6.0 5.0 L (6-13) BUN 16 30 H (6-20) mg/dL Creatinine 1.0 1.4 H (0.6-1.3) mg/dL Estimated GFR (MDRD) 73 L 50 L (>89) Glucose 164 H 118 H (74-104) mg/dL Lactic Acid 1.6 (0.5-2.2) mmol/L Calcium 8.2 L 8.4 L (8.5-10.3) mg/dL Magnesium 2.5 H (1.7-2.3) mg/dL Total Bilirubin 0.3 (0.2-1.0) mg/dL AST 9 L (10-42) IU/L ALT 5 L (10-60) IU/L Alkaline Phosphatase 84 (42-121) IU/L Ammonia 33.7 (18-72) umol/L Total Protein 6.0 L (6.4-8.9) g/dL Albumin 3.9 (3.2-5.5) g/dL Globulin 2.1 (2.1-4.2) g/dL Albumin/Globulin Ratio 1.9 (1.0-2.2) Nasal Adenovirus (PCR) Nasal B. parapertussis DNA (PCR) Nasal Coronavir 229E PCR Nasal Coronavir HKU1 PCR Nasal Coronavir NL63 PCR Nasal Coronavir OC43 PCR Nasal Enterovir/Rhinovir PCR Nasal Influenza B PCR Nasal Influenza A PCR Nasal Parainfluen 1 PCR Nasal Parainfluen 2 PCR Nasal Parainfluen 3 PCR Nasal Parainfluen 4 PCR Nasal RSV (PCR) Nasal B.pertussis DNA PCR Nasal C.pneumoniae (PCR) Ariel Human Metapneumo PCR Nasal M.pneumoniae (PCR) Nasal SARS-CoV-2 (PCR) Urine Opiates Screen NEGATIVE (NEGATIVE) Ur Buprenorphine Scrn NEGATIVE (NEGATIVE) Ur Oxycodone Screen POSITIVE H (NEGATIVE) Urine Methadone Screen NEGATIVE (NEGATIVE) Urine Fentanyl Screen Negative (NEGATIVE) Ur Barbiturates Screen NEGATIVE (NEGATIVE) Ur Tricyclics Screen NEGATIVE (NEGATIVE) Ur Phencyclidine Scrn NEGATIVE (NEGATIVE) Ur Amphetamine Screen NEGATIVE (NEGATIVE) U Methamphetamines Scrn NEGATIVE (NEGATIVE) U Benzodiazepines Scrn NEGATIVE (NEGATIVE) Urine Cocaine Screen NEGATIVE (NEGATIVE) U Cannabinoids Screen POSITIVE H (NEGATIVE) Ur Drug Screen Comment CUTOFF CONC BELOW: Ethyl Alcohol < 10.0 mg/dL 04/16/25 04/16/25 04/16/25 Range/Units 10:00 10:00 10:00 WBC 7.7 (4.8-10.8) x10^3/uL RBC 4.64 L (4.70-6.10) 10^6/uL Hgb 12.9 L (14.0-18.0) g/dL Hct 41.7 L (42.0-52.0) % MCV 89.9 (80.0-94.0) fL MCH 27.8 (27.0-31.0) pg MCHC 30.9 L (32.0-36.0) g/dL RDW 20.6 H (12.0-15.0) % Plt Count 215 (130-450) 10^3/uL MPV 9.7 (7.4-11.4) fL Neut # (Auto) 5.5 (1.5-6.6) 10^3/uL Lymph # (Auto) 0.9 L (1.5-3.5) 10^3/uL Delta # (Auto) 0.8 (0.0-1.0) 10^3/uL Eos # (Auto) 0.5 (0.0-0.7) 10^3/uL Baso # (Auto) 0.1 (0.0-0.1) 10^3/uL Absolute Nucleated RBC 0.00 x10^3/uL Nucleated RBC % 0.0 /100WBC RBC Morph Micro Appear 1+ OVALOCYTES 2+ ANISOCYTOSIS 2+ HYPOCHROMASIA (NORMAL) VBG pH (7.31-7.41) VBG pCO2 (41-51) mmHg VBG pO2 (25-47) mmHg VBG HCO3 (23-28) mmol/L VBG Total CO2 (24-29) mmol/L VBG O2 Saturation (60-80) % VBG Base Excess (-2 - +2) mmol/L Sodium (135-145) mmol/L Potassium (3.5-4.5) mmol/L Chloride (101-111) mmol/L Carbon Dioxide (21-32) mmol/L Anion Gap (6-13) BUN (6-20) mg/dL Creatinine (0.6-1.3) mg/dL Estimated GFR (MDRD) (>89) Glucose (74-104) mg/dL Lactic Acid (0.5-2.2) mmol/L Calcium (8.5-10.3) mg/dL Magnesium (1.7-2.3) mg/dL Total Bilirubin (0.2-1.0) mg/dL AST (10-42) IU/L ALT (10-60) IU/L Alkaline Phosphatase (42-121) IU/L Ammonia (18-72) umol/L Total Protein (6.4-8.9) g/dL Albumin (3.2-5.5) g/dL Globulin (2.1-4.2) g/dL Albumin/Globulin Ratio (1.0-2.2) Nasal Adenovirus (PCR) Nasal B. parapertussis DNA (PCR) Nasal Coronavir 229E PCR Nasal Coronavir HKU1 PCR Nasal Coronavir NL63 PCR Nasal Coronavir OC43 PCR Nasal Enterovir/Rhinovir PCR Nasal Influenza B PCR Nasal Influenza A PCR Nasal Parainfluen 1 PCR Nasal Parainfluen 2 PCR Nasal Parainfluen 3 PCR Nasal Parainfluen 4 PCR Nasal RSV (PCR) Nasal B.pertussis DNA PCR Nasal C.pneumoniae (PCR) Ariel Human Metapneumo PCR Nasal M.pneumoniae (PCR) Nasal SARS-CoV-2 (PCR) Urine Opiates Screen (NEGATIVE) Ur Buprenorphine Scrn (NEGATIVE) Ur Oxycodone Screen (NEGATIVE) Urine Methadone Screen (NEGATIVE) Urine Fentanyl Screen (NEGATIVE) Ur Barbiturates Screen (NEGATIVE) Ur Tricyclics Screen (NEGATIVE) Ur Phencyclidine Scrn (NEGATIVE) Ur Amphetamine Screen (NEGATIVE) U Methamphetamines Scrn (NEGATIVE) U Benzodiazepines Scrn (NEGATIVE) Urine Cocaine Screen (NEGATIVE) U Cannabinoids Screen (NEGATIVE) Ur Drug Screen Comment Ethyl Alcohol mg/dL 04/16/25 04/16/25 Range/Units 09:59 09:45 WBC (4.8-10.8) x10^3/uL RBC (4.70-6.10) 10^6/uL Hgb (14.0-18.0) g/dL Hct (42.0-52.0) % MCV (80.0-94.0) fL MCH (27.0-31.0) pg MCHC (32.0-36.0) g/dL RDW (12.0-15.0) % Plt Count (130-450) 10^3/uL MPV (7.4-11.4) fL Neut # (Auto) (1.5-6.6) 10^3/uL Lymph # (Auto) (1.5-3.5) 10^3/uL Delta # (Auto) (0.0-1.0) 10^3/uL Eos # (Auto) (0.0-0.7) 10^3/uL Baso # (Auto) (0.0-0.1) 10^3/uL Absolute Nucleated RBC x10^3/uL Nucleated RBC % /100WBC RBC Morph Micro Appear (NORMAL) VBG pH 7.405 (7.31-7.41) VBG pCO2 37.5 L (41-51) mmHg VBG pO2 71.6 H (25-47) mmHg VBG HCO3 23.7 (23-28) mmol/L VBG Total CO2 24.9 (24-29) mmol/L VBG O2 Saturation 97.0 H (60-80) % VBG Base Excess -1.2 (-2 - +2) mmol/L Sodium (135-145) mmol/L Potassium (3.5-4.5) mmol/L Chloride (101-111) mmol/L Carbon Dioxide (21-32) mmol/L Anion Gap (6-13) BUN (6-20) mg/dL Creatinine (0.6-1.3) mg/dL Estimated GFR (MDRD) (>89) Glucose (74-104) mg/dL Lactic Acid (0.5-2.2) mmol/L Calcium (8.5-10.3) mg/dL Magnesium (1.7-2.3) mg/dL Total Bilirubin (0.2-1.0) mg/dL AST (10-42) IU/L ALT (10-60) IU/L Alkaline Phosphatase (42-121) IU/L Ammonia (18-72) umol/L Total Protein (6.4-8.9) g/dL Albumin (3.2-5.5) g/dL Globulin (2.1-4.2) g/dL Albumin/Globulin Ratio (1.0-2.2) Nasal Adenovirus (PCR) NOT DETECTED Nasal B. parapertussis DNA (PCR) NOT DETECTED Nasal Coronavir 229E PCR NOT DETECTED Nasal Coronavir HKU1 PCR NOT DETECTED Nasal Coronavir NL63 PCR NOT DETECTED Nasal Coronavir OC43 PCR NOT DETECTED Nasal Enterovir/Rhinovir PCR NOT DETECTED Nasal Influenza B PCR NOT DETECTED Nasal Influenza A PCR NOT DETECTED Nasal Parainfluen 1 PCR NOT DETECTED Nasal Parainfluen 2 PCR NOT DETECTED Nasal Parainfluen 3 PCR NOT DETECTED Nasal Parainfluen 4 PCR NOT DETECTED Nasal RSV (PCR) NOT DETECTED Nasal B.pertussis DNA PCR NOT DETECTED Nasal C.pneumoniae (PCR) NOT DETECTED Ariel Human Metapneumo PCR NOT DETECTED Nasal M.pneumoniae (PCR) NOT DETECTED Nasal SARS-CoV-2 (PCR) NOT DETECTED Urine Opiates Screen (NEGATIVE) Ur Buprenorphine Scrn (NEGATIVE) Ur Oxycodone Screen (NEGATIVE) Urine Methadone Screen (NEGATIVE) Urine Fentanyl Screen (NEGATIVE) Ur Barbiturates Screen (NEGATIVE) Ur Tricyclics Screen (NEGATIVE) Ur Phencyclidine Scrn (NEGATIVE) Ur Amphetamine Screen (NEGATIVE) U Methamphetamines Scrn (NEGATIVE) U Benzodiazepines Scrn (NEGATIVE) Urine Cocaine Screen (NEGATIVE) U Cannabinoids Screen (NEGATIVE) Ur Drug Screen Comment Ethyl Alcohol mg/dL Assessment/Plan Problem List (1) Encephalopathy acute: Impression: Resolved - alert & oriented x 4 when seen. He is continuing to have intense and debilitating muscle spasms. Per , most of his day is spent with him sleeping due to use of narcotic pain medication as well as antispasmodics. also thinks that he may have taken a few extra doses of his medications. Medication clearance likely worsened by acute kidney injury. Continue IV fluids. (2) Muscle spasm: Impression: Patient is having diffuse and uncontrolled muscle spasms, likely due to underlying spinal disease. He is continued on his home baclofen, Lyrica, oxycodone without relief. Trialing IV Valium with some success. Patient is severely debilitated due to these cramps and spasms, and is unsafe to be discharged at this time. (3) Acute kidney failure: Impression: Likely prerenal due to decreased p.o. intake. Improving. Continue gentle IV fluid rehydration. Patient normally takes "long time to pee and empty bladder," per . Bladder protocol in place, monitor for retention. Qualifiers: Acute renal failure type: unspecified Qualified Code(s): N17.9 - Acute kidney failure, unspecified (4) Polyneuropathy, unspecified: Impression: Patient is actively being worked up at the [facility] with neurology for his polyneuropathy. 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 Has severe weakness in all extremities, spends most of his day in bed, and uses an electric wheelchair to get around. Continue home medications including Lyrica, Zanaflex, trazodone, baclofen, oxycodone, meloxicam. (5) Iron deficiency anemia, unspecified: Impression: Patient with a longstanding history of anemia. Hemoglobin stable, no active bleeding. Transfuse for hemoglobin less than 7. Continue oral iron supplementation. Qualifiers: Iron deficiency anemia type: unspecified iron deficiency Qualified Code(s): D50.9 - Iron deficiency anemia, unspecified (6) COPD (chronic obstructive pulmonary disease): Impression: Patient still actively smoking. Continue to pre parole counseling aide on smoking cessation. Some active wheezing noted. Continue scheduled DuoNebs. Nicotine patch offered. Qualifiers: COPD type: COPD with acute exacerbation Qualified Code(s): J44.1 - Chronic obstructive pulmonary disease with (acute) exacerbation (7) Laryngeal mass: Impression: On CT of chest - noted vascularity in the region of the vocal cords may be an acute finding or may possibly indicate the presence of a occult mass. Recommend either CT neck with contrast in 2-3 months to document resolution of this finding or referral to ENT for direct visualization.
[2025-04-17] MEDS: diazePAM INJ 5 MG/ML SYRINGE IVP ONE (09:39)
[2025-04-17] MEDS: oxyCODONE 5 MG TABLET PO PRN (14:52)
[2025-04-18 04:25] LABS: HCT - HEMATOCRIT 36.5 % (42.0-52.0); HGB - HEMOGLOBIN 11.5 g/dL (14.0-18.0); MEAN PLATELET VOLUME 9.6 fL (7.4-11.4); PLT - PLATELET COUNT 208.0 10^3/uL (130-450); RED CELL DISTRIBUTION WIDTH 20.4 % (12.0-15.0)
[2025-04-18 04:46] LABS: BUN - BLOOD UREA NITROGEN 13.0 mg/dL (6-20); CARBON DIOXIDE - CO2 28.0 mmol/L (21-32); CREATININE 0.8 mg/dL (0.6-1.3); GFR - MDRD 95.0 (>89)
[2025-04-18 07:53] VITALS: TEMP 97.7
[2025-04-18 11:38] VITALS: O2SAT 94
--- NOTE | 2025-04-18 11:55 | Discharge Summary ---
Discharge Summary Admit Date: 04/16/25 Discharge Date: 04/18/25 Discharging Provider: Dr. Christi Mallory Primary Care Provider: Dr. Emiliano Lee Code Status: Do Not Attempt Resuscitation Discharge Facility Name: Home, Home Health DIAGNOSES Discharge Diagnoses with Status of Each Condition: Acute encephalopathyresolved, attributed to polypharmacy in setting of accidental extra doses of patient's home medications including baclofen, Lyrica, versus oxycodone. Muscle spasmspatient has chronic pain in his back and extremities due to history of 2 cervical spine surgeries. He is currently being worked up in the outpatient for polyneuropathy or a polymyositis with a neurologist. Continue home pain regimen with baclofen, Lyrica, oxycodone. He had intense and sudden muscle spasms here that were abated with benzodiazepines. As such I am going to be sending him home which is 14 tabs of Ativan to be used only in setting of extreme spasms. This is explained to his at bedside. It was also explained that with the addition of all of his other medications, this would make him very confused and lethargic and loopy so to only use it if absolutely needed. He needs further follow-up with a neurologist, possible neurosurgeon, or pain management. Polyneuropathystable, chronic. Iron deficiency anemiahemoglobin stable, no active bleeding. Continue oral iron supplementation. COPDpatient is still smoking daily. Counseled on cessation. Laryngeal jatinder CT of the chest, there is a noted area of vascularity in the region of the vocal cords which may be the presence of an occult mass. He will likely need ENT follow-up or repeat CT neck in 2 to 3 months. Advised to follow-up with his primary care provider for these referrals. HPI History of Present Illness: Patient is a 74-year-old male with a history of a spinal cord injuries, multiple spinal surgeries, COPD not on home oxygen, active tobacco use, who presented initially for chills and altered mentation. Patient woke up and was alert and oriented x 4. He was unclear what brought him to the hospital though. He states that he was having really terrible spasms. was spoken with. She states that around 3 AM, she heard a loud thud in the bathroom. She had noted that he had fallen. He had grabbed the shower curtains, and then fell back on his wheelchair. He did not get hurt or hit his head. This morning, states that she saw him take extra medications by accident. He thought it was much later. Normally, manages medications. She is not sure what exactly he took. After this fact, he kept saying he does not feel good or "right." He was unable to expand on this further. Patient was awake, he was focused on his muscle spasms. He denied any fevers, chills, difficulty breathing, wheezing. He does have a cough, which he states is chronic. For this cough, he sees a welding machine operator resistance at the [place], and has been prescribed ciprofloxacin as well as inhaled tobramycin. Will resume these as able here. Will also request [place] records for further clarification on this. The tells me that his neurological disorder has been continued to be worked up in the outpatient. They have ruled out polymyositis, and ALS. The neurologist believes that this may be result of his chronic back problems and spinal injury. He had a spinal cord injury after worsening sciatica, as well as to cervical spine surgeries that have left him essentially bedbound at baseline. He is to the electric wheelchair to get from the recliner where he sleeps to the bathroom and back. He lives with his who helps with his ADLs. In the ER, his blood pressure varied from 99/56 to 149/72, you saturating 96% on room air, respiratory rate was between 14-20, heart rate was between 58-1 13, and he was afebrile. Lab work was reviewedhe has normal white count, hemoglobin is 12.9, his creatinine is elevated at 1.4, with a baseline of 0.7. Rapid viral panel was negative. Drug screen is positive for oxycodone which he is prescribed, as well as cannabinoids, which he endorses occasional use of. Patient's medical conditions include COPD not on home oxygen, he is currently being treated for what sounds like Pseudomonas pneumonia with ciprofloxacin and inhaled tobramycin, his chronic spinal cord injuries have resulted in chronic pain and opiate dependence as well as muscle spasms for which he is on Lyrica, baclofen, oxycodone. He has no known drug allergies, and has had extensive spinal surgeries. He quit drinking alcohol about a year ago. He still smokes very heavily, up to a pack a day. He does not smoke marijuana anymore, but occasionally does edibles. CONSULTS | PROCEDURES Procedures: Head CTno acute intracranial pathology Chest CTmild to moderate centrilobular emphysema, bronchiectasis. Hyperemia in the region of vocal cords, possible mass. HOSPITAL COURSE Hospital Course: Patient is a 74-year-old male with a history of polyneuropathy, chronic pain due to cervical spine surgeries, at baseline on oxycodone, muscle relaxants to manage chronic pain who presented with altered mentation. When was spoken with, she states that he thought it was later in the day, and took a few extra doses of medications. She is unsure which ones he took. When he was first admitted, his creatinine was also elevated. He was hydrated adequately, and this is back within normal limits. On the second day of admission, he had diffuse and debilitating muscle spasms, which made it unsafe for him to go home. IV and oral benzodiazepines were trialed with success. I will be sending him home with a few doses of oral Ativan 1 mg, 14 tabs, and advised the to only use it if absolutely necessary as he is on multiple medications already that can cause altered mentation. We talked about how he needs to follow-up with his primary care provider, and likely needs close follow-up with a neurologist, neurosurgeon, and possible pain management. Overall, he was back at his baseline, and deemed suitable for discharge home with very close follow-up. I did order home health for them for extra support at home. ALLERGIES Allergies Allergy/AdvReac Type Severity Reaction Status Date / Time No Known Drug Allergies Allergy Verified 04/16/25 09:43 MEDICATIONS Ambulatory Orders Medication Instructions Recorded Confirmed aspirin 81 mg chewable tablet (St 1 tab PO DAILY 01/2704/16/25 [facility] Aspirin) omeprazole 40 mg capsule,delayed 1 cap PO DAILY 04/16/25 release pregabalin 150 mg capsule (Lyrica) 150 mg PO TID 01/2704/16/25 cyanocobalamin (vitamin B-12) 1,000 mcg PO DAILY 08/2004/16/25 1,000 mcg tablet (Vitamin B-12) hydroxyzine HCl 10 mg tablet 10 mg PO TID PRN spasms # 20 tabs 10/14/24 04/16/25 mirtazapine 30 mg tablet 30 mg PO HS 02/03/25 5 baclofen 20 mg tablet 20 mg PO TID 02/05/25 cholecalciferol (vitamin D3) 25 25 mcg PO DAILY 04/16/25 mcg (1,000 unit) tablet (Vitamin D3) trazodone 150 mg tablet 150 mg PO HS 02/05/25 ferrous sulfate 325 mg (65 mg 325 mg PO DAILYWM #30 ta bs 02/06/25 04/16/25 iron) tablet methocarbamol 500 mg tablet 500 mg PO BID PRN spasms 0 03/01/25 04/16/25 oxycodone 20 mg tablet 20 mg PO TID PRN pain #84 ta bs 04/15/25 04/16/25 lorazepam 1 mg tablet (Ativan) 1 mg PO TID PRN spasms #10 tabs 04/18/25 PHYSICAL EXAM AT DISCHARGE Vital Signs: Vital Signs x48h Temp Pulse Pulse Resp BP Pulse Ox O2 Flow Rate 04/18/25 13:00 97.7 F 83 18 148/71 H 94 0 04/18/25 11:24 88 20 04/18/25 11:05 97.7 F 81 16 135/70 H 94 04/18/25 07:54 100 20 04/18/25 07:51 97.7 F 72 18 143/67 H 93 Objective Comments/Other: Constitutional normal general appearance, no apparent distress, abnormal body habitus (thin) and (underweight) and no limitations HENMT normocephalic, head/scalp atraumatic and hearing grossly normal bilaterally Eyes PERRL, EOMs intact bilaterally and conjunctivae normal Neck/C-Spine visual inspection normal, trachea midline and cervical spine nontender Chest inspection of chest normal Respiratory breath sounds equal bilaterally, normal respiratory effort, wheezing noted (expiratory wheezes, improved) and no rales Cardiovascular normal heart rate noted, regular rhythm noted, no gallop, no rub and no murmur Gastrointestinal abdomen normal to inspection, abdomen soft to palpation, nontender to palpation and normoactive bowel sounds Genitourinary no CVA tenderness and bladder normal to palpation Extremities normal to inspection, normal to palpation and no tenderness Neurology Bilateral upper extremity with condenser setter strength 5 out of 5, flexion/extension 4 out of 5, bilateral lower extremity extension and flexion 3 out of 5, sensation intact in all extremities Psychiatry mental status grossly normal, oriented x3, thought process normal, cooperative and affect normal at times, he wakes with diffuse cramping and in severe pain Skin skin color normal, no rash, no lesions and no wounds LABS 04/18/25 04:17 04/18/25 04:17 FOLLOW UP Follow Up: Follow-up with primary care provider. Follow-up with neurology. Follow-up with pain management. TIME SPENT Time Spent in Discharge (Minutes): 35 Discharge Plan Discharge Patient Disposition: 06 Home Health Service Condition: Stable Prescriptions: New lorazepam [Ativan] 1 mg tablet 1 mg PO TID PRN (Reason: spasms) Qty: 10 0RF Continued oxycodone 20 mg tablet 20 mg PO TID PRN (Reason: pain) Qty: 84 0RF omeprazole 40 MG capsule,delayed release(DR/EC) 1 cap PO DAILY aspirin [[facility] Aspirin] 81 MG tablet,chewable 1 tab PO DAILY pregabalin [Lyrica] 150 MG capsule 150 mg PO TID cyanocobalamin (vitamin B-12) [Vitamin B-12] 1,000 mcg tablet 1,000 mcg PO DAILY hydroxyzine HCl 10 mg tablet 10 mg PO TID PRN (Reason: spasms) Qty: 20 0RF baclofen 20 mg tablet 20 mg PO TID trazodone 150 mg tablet 150 mg PO HS cholecalciferol (vitamin D3) [Vitamin D3] 25 mcg (1,000 unit) tablet 25 mcg PO DAILY ferrous sulfate 325 mg (65 mg iron) Tablet 325 mg PO DAILYWM Qty: 30 0RF mirtazapine 30 mg tablet 30 mg PO HS methocarbamol 500 mg tablet 500 mg PO BID PRN (Reason: spasms) Diet: Regular Interventions: Discharge Last Done: 04/18/25 13:18 Discharge Checklist - Nursing Last Done: 04/18/25 13:18 Discharge Vital Signs (30 Minutes) Last Done: 04/18/25 13:00 Health Concerns: Teodoro came in because you were having intense muscle spasms, and were acting very confused. While you have been here, you have required extra doses of antispasm medications. We talked about how you are already on multiple medications that are designed to help your pain, but at the same time they can make you very confused and lethargic as well. These include your Lyrica, oxycodone, baclofen. I understand that you do need these medications as you are in a significant amount of discomfort. Please follow-up with your neurologist in the outpatient setting. He may refer you to a neurosurgeon to see if there is any surgical options that are possible for your pain. I understand that you have already had a anterior and posterior spinal fusion a C2-C6, and are not interested in invasive procedures, but it may improve your quality of life if there is an option. I am sending you home with a few Ativan only to be used if you have one of those severe muscle spasms that we witnessed while you were here. Besides this, I have not made any changes to your medications. Please continue taking your ciprofloxacin as prescribed by your welding machine operator resistance, minus 4 pills, which you received here. We are glad you are feeling better, thanks for allowing us to take care of you. Please continue close follow-up outpatient with your primary care provider, and your neurologist. Print Language: [place] Citizen Patient Instructions: Muscle Spasm Stand Alone Forms: PCP List Follow-up Care: Emiliano Schafer MD [Primary Care Provider, Family Practice] Vitals documented within 30 minutes of discharge?: Yes
[2025-04-18] MEDS: oxyCODONE 5 MG TABLET PO SCH (13:06)
[2025-04-18 13:18] VITALS: BP 148/71
== END 2025-04-18 13:10 | disposition home health service (06) ==
LOC: MS2 09:24 → ED 09:24 → MS2 12:47
PROVIDERS: ADMIT Internal Medicine; ATTEND Internal Medicine
DX: N17.9 Acute kidney failure, unspecified; T50.911A Poisoning by multiple unspecified drugs, medicaments and biological substances, accidental (unintentional), initial encounter; F17.210 Nicotine dependence, cigarettes, uncomplicated; Z91.81 History of falling; Z79.891 Long term (current) use of opiate analgesic; J44.1 Chronic obstructive pulmonary disease with (acute) exacerbation; G92.8 Other toxic encephalopathy; R05.3 Chronic cough; M50.00 Cervical disc disorder with myelopathy, unspecified cervical region; D64.9 Anemia, unspecified; R93.89 Abnormal findings on diagnostic imaging of other specified body structures; G62.9 Polyneuropathy, unspecified; G82.50 Quadriplegia, unspecified; D50.9 Iron deficiency anemia, unspecified; M54.9 Dorsalgia, unspecified; Z79.899 Other long term (current) drug therapy; J44.9 Chronic obstructive pulmonary disease, unspecified; J15.1 Pneumonia due to Pseudomonas; M62.838 Other muscle spasm; Z74.01 Bed confinement status; G89.29 Other chronic pain